=== PATIENT | female | born 1945 | race Caucasian/White ===

== ENCOUNTER 2016-11-11 15:47 | Inpatient (IN) | payer MEDICARE ==
[~2016-11-11] VITALS: Ht 144.8 cm; Wt 58.5 kg
[2016-11-11 16:08] VITALS: BP 131/89; PULSE 114; RESP 20; O2SAT 97
[2016-11-11 17:00] LABS: D-Dimer 1.73 mg/L FEU (<0.50); INR 2.52 ratio
[2016-11-11 17:37] VITALS: BP 115/79; PULSE 105; RESP 24; O2SAT 98
[2016-11-11 17:37] LABS: BASOPHILS % (AUTO) 0.8 % (0-3); EOSINOPHILS % (AUTO) 2.1 % (0-5); MONOCYTES % (AUTO) 8.6 % (4-12); Mean Corpuscular Hemoglobin 29.3 pg (27.0-35.0); NEUTROPHILS % (AUTO) 60.8 % (40-74); Platelet Count 229 bil/L (150-400)
--- NOTE | 2016-11-11 18:06 | ED.REPORT ---
HPI-General Illness Date of Service November 11, 2016 ED Provider: Jaelyn Mcmullen MD The patient is a 71 year old wheelchair bound female anticoagulated on Warfarin with history of multiple PE's and DVT's and spina bifida, who was sent to the emergency department from the [facility] clinic for an INR of 3.0. The patient had a ground level fall on 11/06/16 when she was transferring from the commode. She hit her left upper thigh and twisted her left leg externally. She now has bruising and swelling to her left thigh. She states her left leg is "twice" the size compared to normal. She has limited sensation due to her history of spina bifida but does report a pressure sensation to left upper thigh and hip/groin region. She denies any other injuries or traumas. Since the fall she has also noticed mild shortness of breath. She denies pleuritic pain. The patient is a Hinduism and does not accept blood products. Nursing Notes Stated Complaint: FELL Chief Complaint: Multiple Trauma/Fall Nursing Notes Reviewed: Yes Allergies: Coded Allergies: Sulfa (Sulfonamide Antibiotics) (Verified Allergy, Intermediate, rash, ) Scheduled Calcitonin [place] (Miacalcin) 30 [place]/3.7 Ml Nasalspr 1 SPRAY NA DAILY [place] in 1 Nostril (Alternating Nostrils) Daily Warfarin Sodium (Warfarin Sodium) 3 Mg Tablet 3 MG PO DAILY Miscellaneous Medications Polyethylene Glycol 3350 (Miralax) 17 Gm Powd.pack 17 GM PO General Time Seen by MD: 18:04 Chief Complaint Other (elevated INR) Hx Obtained From: Patient, Spouse Arrived By: Wheelchair Sudden in Onset?: No Onset Occurred: 3 days ago Symptom Duration: Since onset Location: : Hip left: Thigh left Quality: Pressure Severity: Current: Mild Severity: Maximum: Moderate Recent Healthcare: No recent hospitalization, Recent doctor visit Similar Sx Previous: No Past Medical History Past Medical History Notes: Hinduism - doesn't accept blood products Past Medical History Spina bifida Multiple PE's and DVT's on Warfarin Wheechair bound Past Surgical History 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 Physical Exam Vital Signs Vital Signs Date Time Temp Pulse Resp B/P Pulse Ox O2 Delivery O2 Flow Rate FiO2 11/11/16 17:37 105 24 115/79 98 Room Air 11/11/16 16:08 36.7 114 20 131/89 97 Room Air Initial VS: Reviewed Head / Eyes: Atraumatic, Normocephalic, PERRL ENT: Mucous membranes moist, Conjunctiva normal, No scleral icterus Neck: Supple, Non-tender, Full range of motion Respiratory: Breath sounds normal, Clear to auscultation, No respiratory distress Cardiovascular: Regular rate & rhythm, Heart sounds normal, Intact distal pulses Abdomen / GI: Soft, Non-tender, No guarding, No rebound, No distention Neurologic: Alert, Oriented General/Constitutional: Awake, Alert, Cooperative Cardiovascular: Regular rhythm, Heart sounds NL, No gallop, No murmurs, No rubs Heart Rate / Rhythm: Positive: Tachycardia Back: No midline vertebral tend Signs of spina bifida Lower Extremity / Pelvis / MS: Pelvis stable Significantly deformed legs. No sensation about lower extremities. Left thigh significant hematoma from the inguinal crease to the knee appears about 3 days old. Capillary refill intact distally. 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 Acute fracture of the left femur the proximal diaphysis and involving the inferior aspect of the lesser trochanter with displacement of the major distal fragment posteriorly the thickness of the shaft of the femur. No fracture of the pelvic ring. Dictated by: Uri Haji M.D. on 11/11/2016 at 21:06 Approved by: Uri Haji M.D. on 11/11/2016 at 21:13 Lab Results Interpretation Result Diagram: 11/11/16 1631 11/11/16 1631 Test 11/11/16 16:30 11/11/16 16:31 Prothrombin Time 27.5sec (8.1-12.5) Prothromb Time International Ratio 2.52ratio D-Dimer 1.73mg/L FEU (<0.50) White Blood Count 7.7th/mm3 (3.8-10.1) Red Blood Count 3.86mil/mm3 (3.90-5.20) Hemoglobin 11.3g/dL (12.0-15.6) Hematocrit 33.2% (35.0-46.0) Mean Corpuscular Volume 86.0fL (81-100) Mean Corpuscular Hemoglobin 29.3pg (27.0-35.0) Mean Corpuscular Hemoglobin Concent 34.0% (32.0-37.0) Red Cell Distribution Width 12.7% (12.3-15.4) Platelet Count 229bil/L (150-400) Neutrophils (%) (Auto) 60.8% (40-74) Lymphocytes (%) (Auto) 26.4% (14-46) Monocytes (%) (Auto) 8.6% (4-12) Eosinophils (%) (Auto) 2.1% (0-5) Basophils (%) (Auto) 0.8% (0-3) Hold Purple Top Tube Received (Received) Sodium Level 137mEq/L (134-144) Potassium Level 4.1mEq/L (3.5-5.2) Chloride Level 100mEq/L (97-108) Carbon Dioxide Level 22mmol/L (18-29) Blood Urea Nitrogen 18mg/dL (8-27) Creatinine 0.44mg/dL (0.57-1.00) Estimat Glomerular Filtration Rate 203mL/min (>59) Glucose Level 106mg/dL (60-99) Calcium Level 9.7mg/dL (8.5-10.1) Total Bilirubin 1.5mg/dL (0.0-1.2) Aspartate Amino Transf (AST/SGOT) 24U/L (0-50) Alanine Aminotransferase (ALT/SGPT) 12U/L (0-32) Alkaline Phosphatase 72U/L (25-165) Total Protein 7.0g/dL (6.4-8.4) Albumin 3.6g/dL (3.4-5.0) Hold Red Top Tube Received (Received) Hold [place] Top Tube Received (Received) Hold [place] Top Tube Received (Received) X-Ray Chest Interpretation Chest Xray Interpretation: IMPRESSION: Large hernia versus old left hemidiaphragmatic rupture. Acute disease is not seen in the chest. Bones are osteoporotic. Moderate rotoscoliosis. Dictated by: Uri Haji M.D. on 11/11/2016 at 20:40 Approved by: Uri Haji M.D. on 11/11/2016 at 20:42 View: Portable, 1 view Interpretation / Wet Read by: Interpret - Radiologist X-Ray Interpretation Xray Interpretation: IMPRESSION: Proximal femoral fracture thought to be subtrochanteric but involving the lesser trochanter. Dictated by: Uri Haji M.D. on 11/11/2016 at 20:31 Approved by: Uri Haji M.D. on 11/11/2016 at 20:33 X-Ray Ordered: Pelvis, Hip right, Hip left Interpretation / Wet Read by: Interpret - Radiologist Xray Interpretation: IMPRESSION: Proximal left femoral diaphysis fracture on the margin of images. No distal femoral fracture. Bones are osteoporotic. Dictated by: Uri Haji M.D. on 11/11/2016 at 20:29 Approved by: Uri Haji M.D. on 11/11/2016 at 20:31 Study Performed: 2 view X-Ray Ordered: Femur left Interpretation / Wet Read by: Interpret - Radiologist CT Chest Interpretation IMPRESSION: No evidence for pulmonary embolus. Probable large hiatal hernia. I cannot track the distal esophagus to look for the location of the esophageal gastric junction. A probable hiatal hernia rather than ruptured hemidiaphragm appears to be chronic and involves bowel loops which are nonobstructive. Dictated by: Uri Haji M.D. on 11/11/2016 at 20:33 Approved by: Uri Haji M.D. on 11/11/2016 at 20:40 Study type: CT pulm angiogram Interpretation / Wet Read by: Interpret - Radiologist Re-Eval/Medical Decision Med Decision/Clinical Course fall with transfer 5 days ago. Lare proximal thigh hematoma. As she has spina bifida she has no sensation from the tailbone distal. No complaints of pain. She does have prior history of pulmonary emboli and a nonfunctional Khushi filter in place. She is tachycardic today and is very concerned that she has another pulmonary embolism. She continues on Coumadin is currently therapeutic with an INR 2.5 She is a Jehovah witness and not interested in receiving any blood products. This includes FFP to help reverse her Coumadin level in anticipation of surgical intervention for her left hip fracture tomorrow. Given her mobility needed for transfers believe she and her family are interested in operative repair but are willing to consider options if this is not recommended. We will have her remain nothing by mouth over the course of the evening with further discussion to continue in the morning Source of Hx: Old records, Family Time of Eval: 18:26 Re-Evaluation/Progress Note: Discussed plan for x-rays. Time of Eval: 19:45 Re-Evaluation/Progress Note: Discussed fracture seen on x-ray. Remains in no pain. A failed Khushi filter is now seen on exam. Will contact orthopedist for his recommendation. Consultation #1: Referral / Consult Name: Jere Wells MD Consulted With: Orthopedic Call Returned at: 19:57 Dishwasher: Agrees with eval, Agrees with plan Note: After evaluation of x-rays and discussion of patient's case, agrees with plan for admit and will consult. Suspects this will be a nonoperative well healing fracture. Consultation #2: Referral / Consult Name: Elie Mello MD Consulted With: Hospitalist Call Returned at: 20:30 Dishwasher: Will see patient, Agrees with eval, Agrees with plan, Accepts admit Counseled Regarding: Diagnosis, Lab results, Need for admission Discharge & Departure Primary Impression: Fracture of left hip Encounter type: initial encounter Fracture type: closed Qualified Code: S72.002A - Fracture of unspecified part of neck of left femur, initial encounter for closed fracture Additional Impressions: Fall Encounter type: initial encounter Qualified Code: W19.XXXA - Unspecified fall, initial encounter Spina bifida Spinal region: unspecified Presence of hydrocephalus: unspecified hydrocephalus presence Qualified Code: Q05.9 - Spina bifida, unspecified Disposition: ADMITTED TO HOSPITAL Discharge Condition All VS Reviewed: Yes Condition: Stable Referrals: Felisa Waterman PA-C (PCP) Scribe Attestation Portions of this note were transcribed by Mary Alice Hoover and Nick Marcelo. I, Dr. Mcmullen personally performed the history, physical exam and medical decision -making; I reviewed and confirmed the accuracy of the information in the transcribed note. Signed by: Mary Alice Hoover and Marcos Jesus, 11/11/2016 at 1850. copies to: Felisa Waterman PA-C, Shawna L MD November 11, 2016 18:06 Mary Alice Hoover November 11, 2016 18:11 NICK MARCELO November 11, 2016 18:45
--- NOTE | 2016-11-11 20:32 | DRSVH ---
PROCEDURE: X-RAY LEFT FEMUR, TWO VIEWS ([id number]) INDICATIONS: trauma TECHNIQUE: 2 views of the distal femur are presented. COMPARISON: None. FINDINGS: Bones: Bones are osteoporotic. There is a fracture of the proximal femoral diaphysis without good vis ualization on these images. No fracture of the distal femur is seen. No suspicious bony lesions. Soft tissues: No suspicious soft tissue calcifications or masses. IMPRESSION: Proximal left femoral diaphysis fracture on the margin of images. No distal femoral fract ure. Bones are osteoporotic. Dictated by: Uri Haji M.D. on 11/11/2016 at 20:29 Approved by: Uri Haji M.D. on 11/11/2016 at 20:31
--- NOTE | 2016-11-11 20:34 | DRSVH ---
PROCEDURE: X-RAY PELVIS WITH BILATERAL HIPS, 3 VIEWS INDICATIONS: trauma TECHNIQUE: AP pelvis with lateral view(s) of the both hip(s). COMPARISON: None. FINDINGS: Bones: There is an acute fracture of the proximal left femur. This is a comminuted fracture involvin g the lesser trochanter, right butterfly fragment just inferior to this in the proximal femoral diaph ysis. The femoral neck and head are intact. Pelvic ring appears intact. There is developmental deform ity of both femoral heads and acetabula. The pelvic ring is deformed but no fracture is seen of it. N o suspicious bony lesions. Soft tissues: The visualized bowel gas pattern is normal. No suspicious soft tissue calcifications. IMPRESSION: Proximal femoral fracture thought to be subtrochanteric but involving the lesser trochant er. Dictated by: Uri Haji M.D. on 11/11/2016 at 20:31 Approved by: Uri Haji M.D. on 11/11/2016 at 20:33
--- NOTE | 2016-11-11 20:41 | DRSVH ---
PROCEDURE: CT ANGIO CHEST PULMONARY EMBOLISM ([id number]) INDICATIONS: rule out pulmonary embolus TECHNIQUE: After the administration of intravenous contrast, 2 mm thick sections acquired from the pulmonary api montez to the posterior costophrenic angles. 3-dimensional maximum intensity projection (MIP) coronal a nd sagittal reformats were then acquired through the thorax. For radiation dose reduction, the follo wing was used: automated exposure control, adjustment of mA and/or kV according to patient size. COMPARISON: None. FINDINGS: Image quality: Excellent. Pulmonary arteries: Pulmonary arteries are normal in size, and demonstrate no intraluminal filling d efects to suggest central pulmonary embolism. Lungs and pleura: Lungs are clear. No pleural effusions or pneumothorax. Central and peripheral ai rways are patent. Mediastinum: Heart size is normal, without pericardial effusion. No mediastinal or hilar adenopathy . Thoracic aorta is normal in caliber and enhancement. The stomach and a good portion of bowel loops are within the chest in the left hemithorax. Whether this is a large hiatal hernia or chronic old te ar of the hemidiaphragm I cannot tell. There is subsegmental atelectasis at the left base. Bones and chest wall: There is a moderate rotoscoliosis convex to the left in the lower and to the r ight in the upper thoracic spine. No suspicious bony lesions. Ribs and thoracic spine appear intact throughout. . No axillary or supraclavicular adenopathy. Abdomen: Visualized upper abdominal solid organs appear normal in the early arterial phase of enhanc ement. IMPRESSION: No evidence for pulmonary embolus. Probable large hiatal hernia. I cannot track the distal esophagus to look for the location of the eso phageal gastric junction. A probable hiatal hernia rather than ruptured hemidiaphragm appears to be c hronic and involves bowel loops which are nonobstructive. Dictated by: Uri Haji M.D. on 11/11/2016 at 20:33 Approved by: Uri Haji M.D. on 11/11/2016 at 20:40
--- NOTE | 2016-11-11 20:43 | DRSVH ---
PROCEDURE: X-RAY CHEST ONE VIEW ([id number]) INDICATIONS: PER ER DOCTOR TECHNIQUE: One view of the chest was acquired. COMPARISON: None. FINDINGS: Surgical changes and devices: secured entrance monitor leads are seen over the chest. Lungs and pleura: No pleural effusions or pneumothorax. Lungs are clear. There is a large hernia o r old disruption of the left hemidiaphragm in the left lower lung field. Position of the GE junction cannot be determined. Mediastinum: Mediastinal contours appear normal. Heart size is normal. Bones and chest wall: No suspicious bony lesions. Overlying soft tissues appear unremarkable. IMPRESSION: Large hernia versus old left hemidiaphragmatic rupture. Acute disease is not seen in the chest. Bones are osteoporotic. Moderate rotoscoliosis. Dictated by: Uri Haji M.D. on 11/11/2016 at 20:40 Approved by: Uri Haji M.D. on 11/11/2016 at 20:42
--- NOTE | 2016-11-11 21:14 | DRSVH ---
PROCEDURE: CT HIP LEFT W/O CONTRAST ([id number]) INDICATIONS: FALL LEFT HIP PAIN TECHNIQUE: Noncontrast 3 mm axial sections acquired through the bony pelvis. Additional 3 mm axial sections acq uired through the symptomatic hip joint, with coronal and sagittal reformats. COMPARISON: None. FINDINGS: Image quality: Excellent. Bones: In this patient with deformed pelvis and developmentally deformed femoral head and acetabulum there is no acute fracture of the proximal left femur. The fracture involves the inferior aspect of t he lesser trochanter and the proximal diaphysis of the femur. The distal diaphysis is displaced poste riorly the thickness of the diaphysis. No fracture of the more proximal femur is seen. Bones are oste openic in appearance and there is a moderate amount of fluid around the deformed left hip joint. 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 Acute fracture of the left femur the proximal diaphysis and involving the inferior aspect of the less er trochanter with displacement of the major distal fragment posteriorly the thickness of the shaft o f the femur. No fracture of the pelvic ring. Dictated by: Uri Haji M.D. on 11/11/2016 at 21:06 Approved by: Uri Haji M.D. on 11/11/2016 at 21:13
[2016-11-11] MEDS ORDERED: Polyethylene Glycol (PEG) 17 Gm Powder PO PRN (22:10)
[2016-11-11] MEDS ORDERED: Ondansetron 2 mg/mL 2 mL Inj IVPUSH PRN (22:10)
[2016-11-11] MEDS ORDERED: Phytonadione (Adult) 10 mg/1 mL Inj PO ONE ×2 (22:10→22:35)
[2016-11-11] MEDS ORDERED: Alum-Mag Hydrox-Simeth 30 mL Suspension PO PRN (22:10)
[2016-11-11 22:27] VITALS: BP 126/86; PULSE 117; RESP 18; O2SAT 100
--- NOTE | 2016-11-11 22:40 | PCM.HPMED ---
Subjective Date of Service November 11, 2016 Primary Provider: Admitting Physician: Elie Mello MD Primary Care Physician: Felisa Waterman PA-C Attending Physician: Elie Mello MD Admit Status: From the Emergency Department Chief Complaint: Left hip fracture History of Present Illness: Mrs. Magana is a 71-year-old female with past medical history of spina bifida with no sensation to her bilateral lower extremitys leaving her mostly wheelchair bound as well as a history of multiple PEs and DVTs on chronic anticoagulation who was sent to the ED from the [facility] clinic today for a supratherapeutic INR. The patient reportedly had a ground-level fall on 2016 she was transferring herself from the commode which she routinely does. On falling she states she hit her left upper thigh and twisted her leg externally, denies hitting her head or losing consciousness, or any feelings of pain after fall (though she does not have sensation in her lower extremities). After fall she noticed a large hematoma develop on her left thigh and left hip as well as increase in her left leg circumference stating it is twice the size it normally is. Again she does not report any pain to this area stating it feels more like a pressure sensation to her upper thigh and hip groin area. She also states that since the fall she has been experiencing some mild shortness of breath. She denies chest pain, headache, abdominal pain or changes in GI or habits. She does state that she has has been getting dizzy over the last few days to weeks especially while transferring from commode to wheelchair, also she has been feverish at home but was not temperature. Of note patient is a Jainism and does not wish to receive blood products/platelet transfusion Review of Systems: A comprehensive review of systems was conducted with the patient and found to be negative except as above in the history of present illness. 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 Family History Father thyroid disorder, emphysema, hypertension, of pneumonia age 87 Mother hypertension, thyroid disorder from cardiovascular disease age 80 Social History Hx Alcohol Use: Yes (2 glasses of wine occasionally) Hx Substance Use: No Hx Tobacco Use: No Smoking Status: Unknown if Ever Smoker Exam Vital Signs Vital Sign - Last Date Time Temp Pulse Resp B/P Pulse Ox O2 Delivery O2 Flow Rate FiO2 11/11/16 17:37 105 24 115/79 98 Room Air 11/11/16 16:08 36.7 Exam General: Awake and alert sitting up in hospital bed no acute distress, appropriately interactive HEENT: Normocephalic, atraumatic. External ears without defect. Pupils equal, round, and reactive to light and accommodation. Neck: Supple with full range of motion. No jugular venous distension. Cardiovascular: Tachycardic rate with regular rhythm, no murmurs, rubs, or gallops appreciated Pulmonary: Clear to auscultation bilaterally with no crackles, wheezes, or rhonchi. Normal respiratory effort with no use of accessory muscles. Good air movement Abdomen: Bowel tones present. Soft, nontender. Back: Spina bifida. Spinal midline. Lower back deformities, patient attributes this to collections of spinal fluid Extremities: Significantly distal lower extremities, no sensation of extremities distal pelvis. Unable to move lower extremities bilaterally Left leg greater circumference than right secondary to edema. Significant hematoma on left thigh/left hip area. Cool to palpation, Cap refill less than 2 seconds. Good Pedal pulses bilaterally. No pain to palpation Neurological: Cranial nerves grossly intact. Psychiatric: Normal mood and affect. Alert and oriented to person, place, and time. Lab and Diagnostics Result Diagram: 11/11/16 1631 11/11/16 1631 X-Rays, CTs and MRIs . X-RAY PELVIS WITH BILATERAL HIPS, 3 VIEWS IMPRESSION: Proximal femoral fracture thought to be subtrochanteric but involving the lesser trochanter. Dictated by: Uri Haji M.D. on 11/11/2016 at 20:31 X-RAY LEFT FEMUR, TWO VIEWS IMPRESSION: Proximal left femoral diaphysis fracture on the margin of images. No distal femoral fracture. Bones are osteoporotic. Dictated by: Uri Haji M.D. 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 Acute disease is not seen in the chest. Bones are osteoporotic. Moderate rotoscoliosis. Dictated by: Uri Haji M.D. on 11/11/2016 at 20:40 CT ANGIO CHEST PULMONARY EMBOLISM IMPRESSION: No evidence for pulmonary embolus. Probable large hiatal hernia. I cannot track the distal esophagus to look for the location of the esophageal gastric junction. A probable hiatal hernia rather than ruptured hemidiaphragm appears to be chronic and involves bowel loops which are nonobstructive. Dictated by: Uri Haji M.D. 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 Acute fracture of the left femur the proximal diaphysis and involving the inferior aspect of the lesser trochanter with displacement of the major distal fragment posteriorly the thickness of the shaft of the femur. No fracture of the pelvic ring. Dictated by: Uri Haji M.D. on 11/11/2016 at 21:06 Assessment & Plan Mrs. Magana is a 71-year-old female with past medical history of spina bifida , multiple PEs and DVTs admitted for a left hip fracture Left hip fracture. Present on admission. Ongoing - Imaging confirmed - Orthopedics consult, awaiting recommendations - will see patient in the a.m. - Jainism, no blood products excepted - Nothing by mouth - Warfarin held - 10 Mg of vitamin K given - INR 2.52 - Repeat INR pending D-dimer, present on admission. Ongoing - 1.73 in ED - CT angiogram negative - Supratherapeutic INR - Lower extremity ultrasound pending Normocytic anemia. Present on admission. Ongoing - H&H 11.3/33.2 - Most likely secondary to recent ground-level fall - Patient Jainism. No blood products - Continue to monitor Chronic constipation. Present on admission. Ongoing - MiraLAX Patient Status: Patient was admitted under inpatient status with expected length of stay greater than two midnights due to severity of presenting symptoms , risk of adverse event, and complexity of treatment plan. Pain Evaluation: Adequate Pain Control GI Prophylaxis: H2 carrillo (yuko) VTE Prophylaxis: SCDs Resuscitation Status: CPR: Attempt Resuscitation Attending Statement The patient was seen and examined together with Dr. Vargas on 11/11 and I agree with the history, exam and plan as outlined in the note above. ALEX VARGAS DO November 11, 2016 22:40 Elie Mello MD Nov 12, 2016 01:56
[2016-11-11 22:42] VITALS: BP 110/72; PULSE 74; RESP 14; O2SAT 97
--- NOTE | 2016-11-11 22:45 | NUR ---
Admit Patient arrived to floor at 2227 from ED. Report given by Gilda Mcdonald. Patient A&OX3. Room air. Left AC Peripheral IV Asymptomatic and patent. Vitals stable. Torres catheter Patent and draining. Patient's family by bedside.
[2016-11-11] MEDS ORDERED: POLY17PO6 PO (23:21)
[2016-11-11] MEDS ORDERED: CLC200SP2 (23:21)
[2016-11-11] MEDS ORDERED: WARF3TAB7 PO (23:21)
[2016-11-12] VITALS (12 sets, daily range): BP systolic 93–126; BP diastolic 58–95; PULSE 93–130; RESP 16–24; O2SAT 98–100
[2016-11-12] MEDS ORDERED: Phytonadione (Adult) 10 mg/1 mL Inj IV ONE (00:30)
[2016-11-12] MEDS ORDERED: CHOL10008 PO (00:36)
[2016-11-12] MEDS: 0.9% Sodium Chloride 1,000 ML IV SCH ×3 (05:06→14:25)
[2016-11-12 05:42] LABS: BASOPHILS % (AUTO) 0.8 % (0-3); EOSINOPHILS % (AUTO) 2.3 % (0-5); MONOCYTES % (AUTO) 8.4 % (4-12); Mean Corpuscular Hemoglobin 30.1 pg (27.0-35.0); Mean Corpuscular Volume 86.5 fL (81-100); NEUTROPHILS % (AUTO) 58.8 % (40-74); Platelet Count 226 bil/L (150-400)
[2016-11-12 06:02] LABS: Magnesium 1.9 mg/dL (1.6-2.6)
[2016-11-12 06:29] LABS: INR 1.37 ratio
[2016-11-12] MEDS: Polyethylene Glycol (PEG) 17 Gm Powder PO SCH (08:01)
--- NOTE | 2016-11-12 11:04 | DRSVH ---
PROCEDURE: US VEINOUS LEG DUPLEX UNILATERAL, LEFT INDICATIONS: leg swelling DVT hx TECHNIQUE: Real-time imaging, as well as color and pulse Doppler interrogation, were performed of the lower extr emity deep veins from the inguinal ligament to the popliteal fossa. COMPARISON: [facility], US, VEINS EXTREMITY DUPLEX,[facility], 10/05/2014, 12:18. FINDINGS: No deep venous thrombosis seen within the left common femoral and proximal/mid superficial femoral vein. The distal superficial femoral and popliteal vein is not well seen in this patient wi th prior history of DVT likely related to chronic DVT. IMPRESSION: 1. Suspect chronic DVT involving the distal left superficial femoral and popliteal veins otherwise th e common femoral and proximal/mid superficial femoral veins are patent. Dictated by: Jeffery FLOWER Interpreted: Simone Ash MD on 11/12/2016 at 11:02 Transcribed by: HUMA on 11/12/2016 at 11:04 Approved by: Simone Ash M.D. on 11/12/2016 at 13:19
--- NOTE | 2016-11-12 11:16 | PCM.CONORT ---
Subjective Date of Surgery: Nov 12, 2016 Surgeon Admitting Provider:Elie Mello MD Attending Provider:Elie Mello MD Primary Care Physician:Felisa Waterman PA-C Other Provider: Reason for Consultation: Left femur fracture Allergy Allergies: Coded Allergies: Sulfa (Sulfonamide Antibiotics) (Verified Allergy, Intermediate, rash, ) Medications Calcitonin [place] (Miacalcin) 30 [place]/3.7 Ml Nasalspr 1 SPRAY NA DAILY ( Reported) [place] in 1 Nostril (Alternating Nostrils) Daily Last Taken: Unknown Dose on 11/11/16 Cholecalciferol (Vitamin D3) (Vitamin D3) 1,000 Unit Tab.chew 1,000 UNIT PO BID (Reported) Last Taken: 1,000 UNITS on 11/11/16 0900 Polyethylene Glycol 3350 (Miralax) 17 Gm Powd.pack 17 GM PO DAILY PRN PRN For Constipation (Reported) Last Taken: Unknown Dose on 11/11/16 Warfarin Sodium (Warfarin Sodium) 3 Mg Tablet 3 MG PO DAILY (Reported) Last Taken: Unknown Dose on 11/11/16 History History of ENT Problems?: Yes HEENT History: Positive for:: Cataracts Denies:: Dysphagia Glaucoma Sinus Problem Denture Type: Partial- Upper Teeth Condition: Within Normal Limits Hx of Heart Problems?: No Cardiovascular History: Positive for:: Edema Denies:: Cardiac Surgery Chest Pain Congestive Heart Failure Heart Murmur Hypertension Irregular Heartbeat Pacemaker Thrombophlebitis Hx of Respiratory Problem?: No Respiratory History: Positive for:: Dyspnea Denies:: Asthma COPD Chest Surgery Emphysema Hemoptysis Pneumonia Tuberculosis Hx Neurologic Problems?: No Neurological History: Denies:: Alzheimer's Disease CVA Dementia Dizziness Headaches Parkinson's Disease Seizures Hx of GI Problems?: No Hx of Problems?: Yes Genitourinary History: Positive for:: Urinary Tract Infection Denies:: HX of Hemodialysis Kidney Stones HX of Peritoneal Dialysis: No Female Hx: Denies:: Currently Endometriosis Pelvic Inflammatory Problems with Breasts? Hx Musculoskeletal Problems?: No Musculoskeletal History: Positive for:: Joint Replacement (hip) Musculoskeletal Trauma (fractured hip) Denies:: Back Injury Other History/Comment Janet Magana is a 71-year-old female patient who presents to the ED and a consultation for orthopedic evaluation of their left hip was requested for her ongoing symptoms. The patient states that their pain is a "spasmy" and pinching in nature and mild/moderate in severity localized in the hip and groin without radiation. This has been progressing over the past few hours after she fell while transferring.. Moreover, the pain is exacerbated by activities, especially with uncomfortable positions. 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 She was told that she cannot undergo surgery to have her filter replaced. She reports that she is unable to lay flat given the fact that she has a large fluid collection in her posterior spine which may increase her intracerebral pressures. She reports a history of ischial decubitus wound problems with flap placed in the past. She currently is insensate below her sacrum; however feels spasms given her fracture and reports that she does do independent transfers and does need to stand. She lives with her but reports that he has his own issues and he is unable to help her. She is completely insensate to bilateral lower extremity. There is no known history of hip problems as a child /adolescent such as SCFE, Perthes, dysplasia, OI, or ligamentous laxity. The patient denies any fever, chills, nausea, vomiting, chest pain, shortness of breath, or calf tenderness. Work/hobbies/sports include: Presents with and daughter Hx of Psycho/Social Problems?: No Psycho Social History: Denies:: Anxiety Bipolar Disorder Hx Depression Suicide Attempt Hx Surgeries?: Yes (Ventricular shunt. hip surgery.) Hx Any Other Health Problems?: Yes Other History: Positive for:: Hospitalization Denies:: Cancer Thyroid Disease History Blood Transfusions: Denies:: Accept Blood Products? Blood Transfuse Reaction Blood Transfusions Hx Diabetes: No Hx Alcohol Use: Yes (2 glasses of wine occasionally)Hx Substance Use: No Smoking Status: Unknown if Ever Smoker Have You Smoked inLast 12 mo: No Objective Exam Vital Signs & I/O Vital Sign- Last 8 Hours Date Time Temp Pulse Resp B/P Pulse Ox O2 Delivery O2 Flow Rate FiO2 11/12/16 08:40 36.1 105 16 115/71 98 Room Air 11/12/16 04:50 36.7 93 18 118/58 98 Room Air Intake and Output- Last 8 Hour 11/12/16 Cumulative From/Thru 07:00 11/11/16 16:08 - 11/12/16 06:55 Intake Total 100 ml 100 ml Output Total 700 ml 700 ml Balance -600 ml -600 ml Intake Oral 0 ml 0 ml IV Total 100 ml 100 ml Output Urine Total 700 ml 700 ml # Bowel Movements 0 0 Lab & Micro Results Laboratory Tests Test 11/11/16 16:30 11/11/16 16:31 11/12/16 05:10 Prothrombin Time 27.5sec (8.1-12.5) 14.7sec (8.1-12.5) Prothromb Time International Ratio 2.52ratio 1.37ratio D-Dimer 1.73mg/L FEU (<0.50) White Blood Count 7.7th/mm3 (3.8-10.1) 6.2th/mm3 (3.8-10.1) Red Blood Count 3.86mil/mm3 (3.90-5.20) 3.56mil/mm3 (3.90-5.20) Hemoglobin 11.3g/dL (12.0-15.6) 10.7g/dL (12.0-15.6) Hematocrit 33.2% (35.0-46.0) 30.8% (35.0-46.0) Mean Corpuscular Volume 86.0fL (81-100) 86.5fL (81-100) Mean Corpuscular Hemoglobin 29.3pg (27.0-35.0) 30.1pg (27.0-35.0) Mean Corpuscular Hemoglobin Concent 34.0% (32.0-37.0) 34.7% (32.0-37.0) Red Cell Distribution Width 12.7% (12.3-15.4) 12.9% (12.3-15.4) Platelet Count 229bil/L (150-400) 226bil/L (150-400) Neutrophils (%) (Auto) 60.8% (40-74) 58.8% (40-74) Lymphocytes (%) (Auto) 26.4% (14-46) 28.7% (14-46) Monocytes (%) (Auto) 8.6% (4-12) 8.4% (4-12) Eosinophils (%) (Auto) 2.1% (0-5) 2.3% (0-5) Basophils (%) (Auto) 0.8% (0-3) 0.8% (0-3) Hold Purple Top Tube Received (Received) Sodium Level 137mEq/L (134-144) 142mEq/L (134-144) Potassium Level 4.1mEq/L (3.5-5.2) 3.8mEq/L (3.5-5.2) Chloride Level 100mEq/L (97-108) 103mEq/L (97-108) Carbon Dioxide Level 22mmol/L (18-29) 21mmol/L (18-29) Blood Urea Nitrogen 18mg/dL (8-27) 18mg/dL (8-27) Creatinine 0.44mg/dL (0.57-1.00) 0.48mg/dL (0.57-1.00) Estimat Glomerular Filtration Rate 203mL/min (>59) 184mL/min (>59) Glucose Level 106mg/dL (60-99) 98mg/dL (60-99) Calcium Level 9.7mg/dL (8.5-10.1) 9.0mg/dL (8.5-10.1) Total Bilirubin 1.5mg/dL (0.0-1.2) 1.7mg/dL (0.0-1.2) Aspartate Amino Transf (AST/SGOT) 24U/L (0-50) 19U/L (0-50) Alanine Aminotransferase (ALT/SGPT) 12U/L (0-32) 11U/L (0-32) Alkaline Phosphatase 72U/L (25-165) 64U/L (25-165) Total Protein 7.0g/dL (6.4-8.4) 5.6g/dL (6.4-8.4) Albumin 3.6g/dL (3.4-5.0) 3.2g/dL (3.4-5.0) Hold Red Top Tube Received (Received) Hold [place] Top Tube Received (Received) Hold [place] Top Tube Received (Received) Magnesium Level 1.9mg/dL (1.6-2.6) Result Diagram: 6/06/30 0410 11/12/1610 Review of Systems: Constitutional: Negative, except as otherwise mentioned in the history above. Ophthalmologic: Negative, except as otherwise mentioned in the history above. Cardiovascular: Negative, except as otherwise mentioned in the history above. Respiratory: Negative, except as otherwise mentioned in the history above. Gastrointestinal: Negative, except as otherwise mentioned in the history above. Genitourinary: Negative, except as otherwise mentioned in the history above. Musculoskeletal: Negative, except as otherwise mentioned in the history above. Neurological: Negative, except as otherwise mentioned in the history above. Psychiatric: Negative, except as otherwise mentioned in the history above. Hematologic/Lymphatic: Negative, except as otherwise mentioned in the history above. Allergic/Immunologic: Negative, except as otherwise mentioned in the history above. H&P Surgical Exam Exam Musculoskeletal: CONST: WD,WN, NAD, A+OX3 OCULAR: EOMI, no conjunctivitis/icterus ENT: no deformities, scars or lesions CARDIAC: Pulse is regular. No cyanosis,clubbing,edema RESP: regular,unlabored MSK: Insensate to light touch SPN/DPN/TN distributions. Unable to perform DF/PF /Inv/Ev, 2+ DP Left hip HIP - scars.+ Ecchymosis along lateral thigh, + swelling, - erythema - atrophy or asymmetry. TTP none, ROM logroll-not painful Strength Unable to perform range of motion test - calf tenderness Additional Information Two-view x-ray length demonstrates severely dysplastic left femoral head with subtrochanteric proximal femur spiral fracture with displacement. H&P Preop Plan Impression Left femoral shaft fracture with multiple medical comorbidities Problems: Risks & Benefits * We have reviewed the risks and benefits as well as the alternatives to surgery. All questions were answered to the patient's satisfaction and a counseling note to that effect. The patient has provided informed consent. * I have counseled the patient regarding the deleterious effects that smoking during the perioperative period can have upon wound healing, infection rates, and the overall rate of complications. Plan Nonweightbearing left lower extremity We discussed extensively surgical versus nonsurgical treatment options We discussed poor surgical candidate given history of pulmonary embolisms, need for anticoagulation, failed filter, failed ENCAPSULATOR shunt, wound complications, wound healing problems, lack of support at home. We discussed nonweightbearing and assistance with transfers to allow nonoperative fracture healing You have elected for left femur closed reduction intramedullary nail fixation to assist with transfers and standing for daily function. We discussed risks with stopping anticoagulation and necessary for bridging with Lovenox and/or heparin drip. Plan for left femur CR IMN today Appreciate medical optimization NPO after midnight CT scan recommended of the left hip Continue medical management per primary Please call with questions I reviewed my findings with the patient. The patient remains symptomatic following the initial injury. In light of the ongoing symptoms, our plan is to proceed with surgical intervention. I have explained to the patient the nature of the surgery as well as the perioperative recovery including the risks, benefits and alternatives. A clear explanation was given to the patient regarding the condition present, and the available conservative and surgical options. It was emphasized that the risks and benefits of surgery include but are not limited to infection, wound healing problems, damage to adjacent structures such as nerves, blood vessels and tendons, terminal manager disability and pain, arthritis, hypersensitivity, deep vein thrombosis, pulmonary embolism, broken hardware, failure of surgery, need for further procedures at time of surgery or later, loss of limb, heart attack, stroke, and . The patient was given an explanation and the patient voiced understanding of what to expect after the procedure or surgery, the limitations in activities of daily living, the likely duration for post operative recovery and the instructions that are to be followed. At the end the patient was invited to seek clarification or ask further questions but there were none. I have advised the patient first that there are no guarantees as to outcome and that their ultimate improvement is largely based on the extent of the pre-existing underlying pathology. The patient was instructed to be n.p.o. past midnight The patients questions were answered and they stated understanding of the nature of the surgical procedure and gave written and verbal consent to proceed. The patient voiced understanding of the entire consultation. Jere Wells MD Nov 12, 2016 11:16
--- NOTE | 2016-11-12 12:24 | PCM.HPANE ---
Patient Data Surgeon Admitting Provider:Elie Mello MD Attending Provider:Elie Mello MD Primary Care Physician:Felisa Waterman PA-C Other Provider: Reason for Visit Left Hip Fx, Thigh Hematoma, Anticoagulated Ht/WT & BMI Height (Feet): 4 Height (Inches): 9.00 Weight (Kilograms): 58.500 Body Mass Index 27.82 Allergies Coded Allergies: Sulfa (Sulfonamide Antibiotics) (Verified Allergy, Intermediate, rash, ) Past Anesthesia History Anesthesia History: Denies:: Anesthesia Reactions Diabetes History Hx Diabetes?: No MRSA MRSA: No Medications Hypertension Medication: No Home Meds Incl Beta [place]: No Reported Medications Cholecalciferol (Vitamin D3) (Vitamin D3)1,000 Unit Tab.chew1,000 Unit PO BID 11/12/16 Calcitonin [place] (Miacalcin)30 [place]/3.7 Ml Nasalspr1 [place] NA DAILY #1 BOTTLE [place] in 1 Nostril (Alternating Nostrils) Daily 11/11/16 Polyethylene Glycol 3350 (Miralax)17 Gm Powd.pack17 Gm PO DAILY PRN For Constipation 11/11/16 Warfarin Sodium 3 Mg Tablet3 Mg PO DAILY 30 Days Ref 0 11/11/16 History History of ENT Problems?: Yes HEENT History: Positive for:: Cataracts Denies:: Dysphagia Glaucoma Sinus Problem Denture Type: Partial- Upper Teeth Condition: Within Normal Limits Hx of Heart Problems?: No Cardiovascular History: Positive for:: Edema Denies:: Cardiac Surgery Chest Pain Congestive Heart Failure Heart Murmur Hypertension Irregular Heartbeat Pacemaker Thrombophlebitis Other History/Comments h/o chronic DVT in left leg, on coumadin, IVC filter in place but not functioning(?) according to family Hx of Respiratory Problem?: No Respiratory History: Positive for:: Dyspnea Denies:: Asthma COPD Chest Surgery Emphysema Hemoptysis Pneumonia Tuberculosis Hx Neurologic Problems?: Yes Neurological History: Denies:: Alzheimer's Disease CVA Dementia Dizziness Headaches Parkinson's Disease Seizures Other History/Comments insensate to bilat lower extremities secondary to spina bifida large sub-q collection of CSF(?) left buttock region--patient states that pressure on this sack can cause increased pressure in brain and she passes out Hx of GI Problems?: No Hx of Problems?: Yes Genitourinary History: Positive for:: Urinary Tract Infection Denies:: HX of Hemodialysis Kidney Stones HX of Peritoneal Dialysis: No Female Hx: Denies:: Currently Endometriosis Pelvic Inflammatory Problems with Breasts? Hx Musculoskeletal Problems?: Yes Musculoskeletal History: Positive for:: Joint Replacement (hip) Musculoskeletal Trauma (fractured hip) Denies:: Back Injury Other History/Comment spina bifida Hx of Psycho/Social Problems?: No Psycho Social History: Denies:: Anxiety Bipolar Disorder Hx Depression Suicide Attempt Hx Surgeries?: Yes (Ventricular shunt. hip surgery.) Hx Any Other Health Problems?: Yes Other History: Positive for:: Hospitalization Denies:: Cancer Thyroid Disease History Blood Transfusions: Denies:: Accept Blood Products? Blood Transfuse Reaction Blood Transfusions Hx Diabetes: No Hx Alcohol Use: Yes (2 glasses of wine occasionally)Hx Substance Use: No Smoking Status: Unknown if Ever Smoker Have You Smoked inLast 12 mo: No Stop/Bang Treated for Sleep Apnea?: No Do You Have a CPAP Machine?: No S-Snoring: Do You Snore Loudly: Yes T-Tired: feel tired, fatigued: No O-Obsered: Observed not breath: No P-Blood Pressure: treated: No B- Body Mass Index > 35 kg/m2: No A- Age over 50: Yes N- Neck Large Circumference: No G- Gender Male: No BRYNN Total Score: 1 Risk Assessment Category Category 1A: Patient has history of documented sleep apnea, and HAS NOT received any narcotic, sedative or anesthesia administration during this stay. Category 1B: Patient has history of documented sleep apnea, and HAS received any narcotic , sedative or anesthesia administration during this stay Category 2: Patient has SUSPECTED Obstructive Sleep Apnea, and HAS received any narcotic , sedative or anesthesia administration during this stay. Category 3: Patient has SUSPECTED Obstructive Sleep Apnea and HAS NOT received narcotic, sedative or anesthesia administration during this stay. Category 4: Outpatient in Procedural Areas with known sleep apnea or who screen positive for High Risk via the STOP/BANG questionnaire. Exam Exam Vital Signs Vital Signs Date Time Temp Pulse Resp B/P Pulse Ox O2 Delivery O2 Flow Rate FiO2 11/12/16 08:40 36.1 105 16 115/71 98 Room Air 11/12/16 04:50 36.7 93 18 118/58 98 Room Air General Appearance: Alert, Oriented X3, Cooperative, No Acute Distress HEENT/AIRWAY: MP 2, Neck Movement (NML), Mouth Opening (2-3FB), Other (partial upper) Lungs: Normal Air Movement Heart: Exam Unremarkable Additional Information roughly 15cm x10cm mass/fluid collection on upper left buttock Meds/Labs/Diagnostics Admission Meds Current Medications Phytonadione 10 mg 10 mg ONCE ONCE IV Last administered on 11/12/16 01:18; Start 11/12/16 at 00:30; Stop 11/12/16 at 00:31; Status DC Sodium Chloride (Normal Saline) 1,000 ml @ 100 mls/hr Q10H IV Last administered on 11/12/16 05:06; Start 11/12/16 at 04:25 Labs Test 11/11/16 16:30 11/11/16 16:31 11/12/16 05:10 D-Dimer 1.73mg/L FEU (<0.50) Hold Purple Top Tube Received (Received) Hold Red Top Tube Received (Received) Hold [place] Top Tube Received (Received) Hold [place] Top Tube Received (Received) White Blood Count 6.2th/mm3 (3.8-10.1) Red Blood Count 3.56mil/mm3 (3.90-5.20) Hemoglobin 10.7g/dL (12.0-15.6) Hematocrit 30.8% (35.0-46.0) Mean Corpuscular Volume 86.5fL (81-100) Mean Corpuscular Hemoglobin 30.1pg (27.0-35.0) Mean Corpuscular Hemoglobin Concent 34.7% (32.0-37.0) Red Cell Distribution Width 12.9% (12.3-15.4) Platelet Count 226bil/L (150-400) Neutrophils (%) (Auto) 58.8% (40-74) Lymphocytes (%) (Auto) 28.7% (14-46) Monocytes (%) (Auto) 8.4% (4-12) Eosinophils (%) (Auto) 2.3% (0-5) Basophils (%) (Auto) 0.8% (0-3) Prothrombin Time 14.7sec (8.1-12.5) Prothromb Time International Ratio 1.37ratio Sodium Level 142mEq/L (134-144) Potassium Level 3.8mEq/L (3.5-5.2) Chloride Level 103mEq/L (97-108) Carbon Dioxide Level 21mmol/L (18-29) Blood Urea Nitrogen 18mg/dL (8-27) Creatinine 0.48mg/dL (0.57-1.00) Estimat Glomerular Filtration Rate 184mL/min (>59) Glucose Level 98mg/dL (60-99) Calcium Level 9.0mg/dL (8.5-10.1) Magnesium Level 1.9mg/dL (1.6-2.6) Total Bilirubin 1.7mg/dL (0.0-1.2) Aspartate Amino Transf (AST/SGOT) 19U/L (0-50) Alanine Aminotransferase (ALT/SGPT) 11U/L (0-32) Alkaline Phosphatase 64U/L (25-165) Total Protein 5.6g/dL (6.4-8.4) Albumin 3.2g/dL (3.4-5.0) Plan Impression Patient chart reviewed, patient interviewed and anesthestic plan with risks, benefits, and alternatives discussed, and informed consent obtained. ASA Physical Status: ASA4 Life Threatening (spina bifida with paralysis, CSF fluid collection in buttock, anxiety) Anesthetic Plan: MAC Bene/Risks/Altern/Consents: Yes HP Complete Prior to Induction: Yes Other Extensive discussion with patient and her family about the concerns and challenges of positioning. Patient is very anxious and insists she cannot be aware nor remember any of the surgery. I explained that we would need her assistance to safely get positioned on the OR table so as not to increase pressure on the CSF fluid collection. Once she is positioned adequately for surgery and her comfort then she may have further sedation. Anxiolysis to begin in pre-op. Will attempt to avoid GA to facilitate fast evaluation of mental status post-procedure. Emmanuel Rivera MD Nov 12, 2016 12:24
--- NOTE | 2016-11-12 12:49 | NUR ---
TO OR Consent form has been signed. Report given to AMANDA Giang. IV saline locked. Transported to the OR via a hospital bed. Family is aware.
[2016-11-12] MEDS ORDERED: Propofol 10,000 mCg/mL 20 mL Inj ONE (12:50)
[2016-11-12] MEDS ORDERED: fentaNYL-PF 50 mCg/mL 2 mL Inj ONE ×2 (12:50→17:11)
[2016-11-12] MEDS ORDERED: Phenylephrine/NS-PF 100 mCg/mL 5 mL Syringe IVPUSH ONE (12:50)
--- NOTE | 2016-11-12 13:58 | NUR ---
pt is in OR Addendum: 11/12/16 at 1359 by DAVY SHRESTHA CNA Amended: Links added.
[2016-11-12] MEDS ORDERED: Lactated Ringer's 500 ML IV PRN (14:46)
[2016-11-12] MEDS ORDERED: Lactated Ringer's 1,000 ML IV SCH (14:46)
[2016-11-12] MEDS ORDERED: Labetalol 5 mg/mL 4 mL Inj IV PRN (14:50)
[2016-11-12] MEDS ORDERED: MetoCLOpramide 5 mg/mL 2 mL Inj IVPUSH PRN (14:50)
[2016-11-12] MEDS ORDERED: Albuterol-Ipratropium 3 mL Inhalation Solution NEB PRN (14:50)
[2016-11-12] MEDS ORDERED: Dexamethasone 4 mg/mL Inj IVPUSH PRN (14:50)
[2016-11-12] MEDS ORDERED: HYDROmorphone 1 mg/mL Inj IVPUSH PRN (14:50)
[2016-11-12] MEDS ORDERED: EPHEDrine Sulfate 50 mg/mL Inj IVPUSH PRN (14:50)
[2016-11-12] MEDS ORDERED: Ondansetron 2 mg/mL 2 mL Inj IVPUSH PRN ×2 (14:50→16:55)
[2016-11-12] MEDS ORDERED: Phenylephrine 10,000 mCg/mL Inj IVPUSH PRN (14:50)
--- NOTE | 2016-11-12 15:51 | NUR ---
Social Work- Initial Assessment Data: See Initial Assessment. Pt is a 71 year old female admitted 11/11/16 for left hip fracture, thigh hematoma per H&P. Pt's insurance is [facility] and [employer]. Pt's PCP is Felisa Waterman PA-C. Per pt's daughter, pt's identified support person is her spouse Philippe Magana [phone]. Pt's readmit risk level is 3. SW attempted initial assessment with pt at bedside but pt was out of room for surgery. T/C to pt's spouse Philippe Magana, regarding pt's discharge plan, no answer. T/C to pt's daughter Rajani Arredondo [phone] regarding pt's discharge plan. Daughter and Pt's Spouse were together and available to speak by phone. Per family, pt resides in [place] with her spouse in a single story home with a wheelchair lift from the garage to the main level. Pt she receives assistance with ADLs including bathing, dressing, and transportation. Pt is in a wheelchair at baseline and is typically independent with transfers. Pt's transfer ability has decreased over the past few months and pt is requiring more assistance from her . Pt's is able and willing to assist but is slightly limited by his knee replacements and fused discs in his back. Pt's is independent with feeding, meal prep, medication management, and chores such as housekeeping and laundry. Pt has a history of HH RN PT for wound care and continued strengthening, name of HH company is unknown. Pt's daughter identified that with regular PT and OT, pt's strength increases and she becomes independent with transfers again. Pt has a history of SNF 12 years ago in [place]. Pt has no LTC or VA benefits. Pt's DPOA is not on file, SW encouraged daughter to complete this paperwork and bring it to the hospital for pt's records. Pt's daughter states that pt and family are agreeable to whatever is necessary at discharge, including SNF or HH. Pt's spouse and daughter are available for assistance in the home after surgery, though pt's spouse will be primary caregiver. SW provided phone number and oriented daughter to location of SW phone number in patient's room. SW will await MD orders regarding SNF vs. HH based on medical necessity. SW will continue to follow. Assessment: Pt who is wheelchair bound at baseline. Plan: Pt is wheelchair bound at baseline. Pt is in surgery this afternoon. SW will await MD orders regarding SNF vs. HH based on medical necessity. SW will continue to follow. VINITA Olvera Addendum: 11/12/16 at 1601 by ONEL ORELLANA SS Amended: Links added.
[2016-11-12] MEDS ORDERED: Lactated Ringer's 1,000 ML IV ONE (16:33)
[2016-11-12] MEDS ORDERED: Sodium Biphos-Phos 133 mL Enema RECTAL PRN (16:55)
[2016-11-12] MEDS ORDERED: HYDROcodone-APAP 7.5-325 mg Tablet PO PRN (16:55)
[2016-11-12] MEDS ORDERED: Magnesium Hydroxide 10 mL Oral Concentration PO PRN (16:55)
[2016-11-12] MEDS ORDERED: diphenhydrAMINE 25 mg Capsule PO PRN (16:55)
[2016-11-12] MEDS ORDERED: Polyethylene Glycol (PEG) 17 Gm Powder PO PRN (16:55)
--- NOTE | 2016-11-12 17:06 | PCM.ORTHOP ---
Orthopedic Operative Report Date of Service: Nov 12, 2016 Pre Operative Diagnosis left subtrochanteric femoral shaft fracture Post Operative Diagnosis left subtrochanteric femoral shaft fracture Procedure left femur closed reduction intramedullary nail fixation Surgeon Surgeon: Jere Wells Assistants: Janusz Juarez Indication for Procedure left femur fracture Findings per dictation Details of Procedure Implant: Josie/Biomet 11X36 versa nail, 6.5X60, 80; 4.5X56mm distally Indications: This is Janet Magana is a 71-year-old female with left subtrochanteric femur fracture with extension. The risks versus benefits of open reduction and internal fixation were discussed with the patient in detail. The patient voiced understanding of the risks and agreed to proceed. The risks discussed were pain, bleeding, infection, damage to neurovascular structures, failure of procedure, need for further procedures, loss of limb function, loss of limb, heart attack, stroke, and . Verbal and written consent were obtained. Description of Operation: The patient was brought to the operating room. Patient name and surgical site were confirmed. Preoperative antibiotics were given. General anesthesia was administered. The patient was placed supine on the fracture table in the standard fashion. All bony prominences were well padded. Traction was applied to the operative leg and the fracture was closed reduced under C-arm guidance. The leg and hip were then prepped and draped in the usual sterile fashion. A small longitudinal incision was made proximal to the greater trochanter. Subcutaneous dissection was bluntly performed down to the tip of the greater trochanter. A 3.2 mm guide pin was then placed through the tip of the greater trochanter and into the femoral canal under fluoroscopic guidance. This was checked in both AP and lateral views. This pin was then over-reamed with a 14 mm reamer. The ball tipped guide wire was placed into the medullary canal and advanced into the center of the distal metaphysis. The guide wire was then over-reamed in 0.5 mm increments until bony chatter was achieved at the isthmus. A tire gauge was used to determine the length of the nail. The nail implant was loaded onto the insertion jig and then gently malleted into position over the guide wire. A small poke hole was used anteriorly for a ball-tip pusher reduction instrument. The fracture was well reduced as confirmed with C-arm in AP and lateral views. The guide was removed. The guide pin for the proximal screws was inserted to a point within 25 mm tip-to-apex distance on AP and lateral views. The proximal 2 screws were selected and inserted. The traction was removed and orthogonal views with fluoroscopy determined reduction of our fracture with appropriate placement of hip screw centered with a tip-to-apex distance less than 25 mm. The distal interlocking screw was then inserted in the standard fashion using the perfect algaaciq technique under C-arm guidance. All wounds were thoroughly irrigated by bulb irrigation. Hemostasis was obtained with electrocautery. The fascia was closed with 0 Vicryl suture. The subcutaneous space was closed with interrupted 2-0 Vicryl suture. The skin was closed with hever. Hard copy radiographs confirmed adequate reduction and placement of hardware. The patient was extubated without difficulty and transferred to the PACU in stable condition. I was present and scrubbed for the entire procedure. Description of Findings: severely osteopenic subtrochanteric femur fracture with extension Specimens Obtained: none You may WBAT. Keep your wound clean, dry and intact. We will change your dressing in 2 days and continue daily dressing changes PT/OT will be ordered. Return to clinic in 2 weeks with me with 2 view femur x-rays and staple/suture removal with Steri-Strips application. You may get your wound wet at that time. Please keep the affected extremity elevated when possible. You may use ice and/or heat as needed for comfort. All questions and concerns were addressed. Please feel free to call with any further questions, comments, and/or concerns. Grafts, Implants: Implants-See Implant Record Complications There were no periprocedural complications identified. Condition Stable Anesthetic Administered: GA Catheters: None Output, Estimated Blood Loss: 10 Blood Admin during surgery: No (there is a) Surgical Cast or Splint: Other Surgical Specimen Removed: No Specimen sent to Pathology: No ( when necessary) copies to: Jere Wells MD, Christopher L MD Nov 12, 2016 17:06
[2016-11-12] MEDS: fentaNYL-PF 50 mCg/mL 2 mL Inj IVPUSH PRN ×2 (17:19→17:35)
--- NOTE | 2016-11-12 17:26 | PCM.ANEP1 ---
Post Anesthesia PACU Phase 1 Assessment Anesthetic Administered: MAC Level of Alertness: Awake, talking Pain: No (RN is aware) Nausea or Vomiting: No CV Function & Hydration Stable: Yes Airway Device: Oxygen Delivery: Room Air Lungs: Normal Air Movement PACU Phase 2 Assessment Complications: No Follow up Care: N/A Patient Instructions Provided: N/A Emmanuel Rivera MD Nov 12, 2016 17:26
--- NOTE | 2016-11-12 18:29 | DRSVH ---
PROCEDURE: X-RAY RIGHT FEMUR, TWO VIEWS ([id number]) INDICATIONS: 71 year-old female with right hip pain after fall, with known left femoral fracture. TECHNIQUE: 4 views of the femur were acquired. COMPARISON: [facility], CT, CT HIP LT WO CON, 11/11/2016, 20:47. FINDINGS: Bones: No fractures or dislocations. As before, the pelvic ring appears gracile with shallow acetab ular fossa, consistent with chronic neuromuscular disorder. No suspicious bony lesions. Soft tissues: No suspicious soft tissue calcifications or masses. There is severe right thigh muscle atrophy. Torres catheter is again noted. IMPRESSION: No acute bony injuries of the right femur. Dictated by: Hansel Michelle M.D. on 11/12/2016 at 18:25 Approved by: Hansel Michelle M.D. on 11/12/2016 at 18:27
--- NOTE | 2016-11-12 18:47 | NUR ---
POST-OP Patient received from PACU via a hospital bed. On O2 at 3 LPM via NC. IVF restarted. Dressing is CDI. IFC intact and draining to jordy colored UO. SCD's placed on. Via FELDT scale patients pain level is 8/10. Denies nausea. No emesis noted. Denies SOB. Oriented to room and call light.
[2016-11-12] MEDS: Senna-Docusate 8.6-50 mg Tablet PO SCH (19:28)
[2016-11-12] MEDS: HYDROcodone-APAP 5-325 mg Tablet PO PRN (21:00)
--- NOTE | 2016-11-12 22:52 | PCM.PNMED ---
Subjective Date of Service Nov 12, 2016 Subjective Patient states that she does not want any narcotics she really does not feel pain and she just was uncomfortable. She also declined any kind of muscle relaxant medication. Family has the stress the fact that the [employer] and will not accept blood transfusions. Has been discussed patient's inability to lay flat, patient's. 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 He states that patient has had a clot while being on Coumadin, because there was already an IVC filter, another IVC filter could not be placed Exam Vital Signs Vital Sign - Last Date Time Temp Pulse Resp B/P Pulse Ox O2 Delivery O2 Flow Rate FiO2 11/12/16 21:21 36.6 103 20 103/67 100 Nasal Cannula 2.50 Intake and Output 11/11/16 11/11/16 11/12/16 Cumulative From/Thru 15:00 23:00 07:00 11/11/16 16:08 - 11/12/16 06:55 Intake Total 100 ml 100 ml Output Total 700 ml 700 ml Balance -600 ml -600 ml Intake Oral 0 ml 0 ml IV Total 100 ml 100 ml Output Urine Total 700 ml 700 ml # Bowel Movements 0 0 Exam General: Awake and alert sitting up in hospital bed somewhat uncomfortable, appropriately interactive HEENT: Normocephalic, atraumatic. External ears without defect. Neck: Supple with full range of motion. No jugular venous distension. Cardiovascular: Regular rate with regular rhythm, no murmurs, rubs, or gallops appreciated Pulmonary: Clear to auscultation bilaterally with no crackles, wheezes, or rhonchi. Normal respiratory effort with no use of accessory muscles. Good air movement Abdomen: Bowel tones present. Soft, nontender. Back: Spina bifida. Spinal midline. Lower back deformities, patient attributes this to collections of spinal fluid Extremities: Significantly distal lower extremities, no sensation of extremities distal pelvis. Good Pedal pulses bilaterally. No pain to palpation Neurological: No focal deficits Psychiatric: Normal mood and affect. Alert and oriented to person, place, and time. IVs and Medications IV Fluids Normal saline 100 mL/h Medications Reviewed: Medications were reviewed in detail Lab and Diagnostics Result Diagram: 11/12/1610 11/12/16 0510 X-Rays, CTs and MRIs . X-RAY PELVIS WITH BILATERAL HIPS, 3 VIEWS IMPRESSION: Proximal femoral fracture thought to be subtrochanteric but involving the lesser trochanter. Dictated by: Uri Haji M.D. on 11/11/2016 at 20:31 X-RAY LEFT FEMUR, TWO VIEWS IMPRESSION: Proximal left femoral diaphysis fracture on the margin of images. No distal femoral fracture. Bones are osteoporotic. Dictated by: Uri Haji M.D. 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 Acute disease is not seen in the chest. Bones are osteoporotic. Moderate rotoscoliosis. Dictated by: Uri Haji M.D. on 11/11/2016 at 20:40 CT ANGIO CHEST PULMONARY EMBOLISM IMPRESSION: No evidence for pulmonary embolus. Probable large hiatal hernia. I cannot track the distal esophagus to look for the location of the esophageal gastric junction. A probable hiatal hernia rather than ruptured hemidiaphragm appears to be chronic and involves bowel loops which are nonobstructive. Dictated by: Uri Haji M.D. 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 Acute fracture of the left femur the proximal diaphysis and involving the inferior aspect of the lesser trochanter with displacement of the major distal fragment posteriorly the thickness of the shaft of the femur. No fracture of the pelvic ring. Dictated by: Uri Haji M.D. on 11/11/2016 at 21:06 Assessment & Plan Mrs. Magana is a 71-year-old female with past medical history of spina bifida , multiple PEs and DVTs admitted for a left hip fracture Left hip fracture Present on admission. Ongoing - Imaging confirmed - Orthopedics consult, awaiting recommendations - Dr. 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 --Plan to start heparin drip in the AM ( recommendation is to start after 48 hrs , she is very high risk), restart coumadin. on 11/13 AM: Will discuss with Dr. Nichole Right hip pain: -- X-rays ordered D-dimer, present on admission. Ongoing - 1.73 in ED - CT angiogram negative - Lower extremity ultrasound showed Suspect chronic DVT involving the distal left superficial femoral and popliteal veins otherwise the common femoral and proximal/mid superficial femoral veins are patent. Normocytic anemia. Present on admission. Ongoing - H&H 11.3/33.2 - Most likely secondary to recent ground-level fall - Patient Adventism. No blood products - Continue to monitor Chronic constipation. Present on admission. Ongoing - MiraLAX Patient Status: Patient was admitted under inpatient status with expected length of stay greater than two midnights due to severity of presenting symptoms , risk of adverse event, and complexity of treatment plan. Pain Evaluation: Other (patient refused pain medications) GI Prophylaxis: H2 carrillo (yuko) VTE Prophylaxis: SCDs VTE Mechanical Devices: Intermittant Pneumatic CD Resuscitation Status: CPR: Attempt Resuscitation Time spent 30 min Stella Pineda DO Nov 12, 2016 22:52
[2016-11-13] VITALS (7 sets, daily range): BP systolic 90–112; BP diastolic 47–67; PULSE 80–99; RESP 16–20; O2SAT 98–100
[2016-11-13] MEDS: 0.9% Sodium Chloride 1,000 ML IV SCH ×3 (00:09→19:59)
[2016-11-13] MEDS: Sodium Chloride LOK Flush 10 mL Syringe IV SCH ×3 (00:14→16:50)
[2016-11-13] MEDS: HYDROcodone-APAP 5-325 mg Tablet PO PRN ×4 (00:22→18:33)
--- NOTE | 2016-11-13 02:04 | NUR ---
Sputum This evening at approx 0020 patient coughed up thick bloody sputum X1. Patient has not presented with a productive or persistent cough this evening; only states an occasional dry cough. Additional coughing has not been observed patient since this episode. Night hospitalist contacted and states no new orders at this time. Will continue to monitor, and continue Q1 hour checks.
[2016-11-13 06:06] LABS: INR 1.07 ratio
--- NOTE | 2016-11-13 07:24 | PCM.PNORTH ---
Subjective Date of Service: Nov 13, 2016 Visit Information: Reason for Visit Left Hip Fx, Thigh Hematoma, Anticoagulated Surgery/Surgery Date Post-Op Day # Date of Admission: November 11, 2016 at 21:51 Hospital Day # Subjective Found patient awake and alert and sitting up in bed. No complaints of pain at this time. Discussed her mobility issues at baseline at some length this morning. Patient indicates she has no use of her legs whatsoever but does partially stand at bedside when putting on her close. Patient indicates her right leg is her "good leg" but her right knee has been giving out on her more often recently. Patient indicates she has no sensation in the lower extremities and no active function. Patient does have specific positioning needs secondary to a thecal sac at her left posterior hip which was compressed causes her some significant medical issues. She does use a specific wheelchair in her home and a different wheelchair when she is out. She relates that her is ill and not in good condition and is really minimal help. She does have a daughter in the area but she works and will not be able to be at her home to a large extent. I have discussed with patient likely discharged to longterm facility for safety and rehabilitation purposes and she is in agreement with this. I have asked patient to speak with social media content specialist and explained the role and she is readily willing to do this to make plans for discharge. Postop General: No Complaints, No Shortness of Breath, No Chest Pain Pain Management: PO Objective Exam Objective Alert and oriented 3 and pleasant. Interoperative dressing are clean dry and intact. Thigh is swollen secondary to her injury with ecchymosis. No evidence of DVT present. Sensation and function are absent at the lower extremities bilaterally Bilateral SCDs in place. Vital Signs and I/O Vital Sign - Last Date Time Temp Pulse Resp B/P Pulse Ox O2 Delivery O2 Flow Rate FiO2 11/13/16 06:33 108/67 11/13/16 06:05 36.6 90 18 100 11/13/16 00:12 Room Air 11/12/16 21:21 2.50 Intake and Output 11/12/16 11/12/16 11/13/16 Cumulative From/Thru 15:00 23:00 07:00 11/11/16 16:08 - 11/13/16 06:52 Intake Total 1000 ml 300 ml 1161 ml 2561 ml Output Total 210 ml 300 ml 1210 ml Balance 1000 ml 90 ml 861 ml 1351 ml Intake Oral 440 ml 440 ml IV Total 1000 ml 300 ml 721 ml 2121 ml Output Urine Total 300 ml 1000 ml Estimated Blood Loss 210 ml 210 ml # Bowel Movements 0 Lab & Micro Results Laboratory Tests Test 11/13/16 04:55 Prothrombin Time 11.5sec (8.1-12.5) Prothromb Time International Ratio 1.07ratio Result Diagram: 11/12/16 0510 11/12/16 0510 General Appearance: Alert, Oriented X3, Cooperative, No Acute Distress Extremities: No Compartment Syndrom Noted, Thigh & Calf Soft/Nontender Activity: Activity per PT, Ambulate with PT (weightbearing as tolerated on the left lower extremity for transfers. Physical therapy please work on bed mobility, positioning and transferring with patient's primary in-home wheelchair ) Catheters: None, Urethral 2 Way Torres (Torres in place on postop day #1. Discontinue Torres on postoperative day #1 after first PT session.) Assessment & Plan Impression Patient is a 71-year-old female with spina bifida. Her condition has been deteriorating for many years and she currently has no ability to pursue active gait and only stands while leaning on her bed to pull up her pants in the morning. She has no sensation or function in the lower extremities. Patient is generally independent at baseline using wheelchair and sliding transfers but is gradually becoming weaker over time. Problems: Plan Postop day #1 from left hip long IM nail placement on 11/12/[address] Eitan Wells. Weightbearing as tolerated on the left lower extremity for transfers only. Continue formal physical therapy for bed mobility, transfers and safety. Continue occupational therapy as needed for bed mobility, transfers and safety. Continue by mouth pain medications as needed. Continue bridging to chronic warfarin per pharmacy with hospitalist service input as needed. Interoperative dressings at left hip will be changed on postop day #2. Torres catheter will be DC'd on postop day #1 after first PT session. Nursing please measure for an fit bilateral thigh high ANNY hose. Left leg may need to be fitted separately with a larger hose than the right leg. Nursing: Patient may need special positioning secondary to spina bifida and thecal sac at posterior left hip which will require reduced compression. Patient will advise regarding positioning aids. Follow-up in 2 weeks at [facility] orthopedic clinic with Dr. Jere roy for staple removal, Steri-Strip placement and wound check with left two- view femur x-rays on arrival. Follow-up in 6 weeks at [facility] orthopedic clinic with Dr. Jere roy with left two-view femur x-rays on arrival. [facility] service for their help in the medical management of this patient. Anticipate discharge to longterm facility by hospitalist service when patient is medically stable to do so. VTE Prophylaxis: Sub-Q Heparin (Unfractionated) (bridging to chronic warfarin made be accomplished with heparin or other pertinent pharmacy and hospitalist service.), Theraputic Anticoag with Warfarin (patient will be bridged back to her chronic warfarin dosing per pharmacy management with hospitalist service.), SCDs, ANNY Goss Resuscitation Status: CPR: Attempt Resuscitation Janusz Juarez PA-C Nov 13, 2016 07:24
--- NOTE | 2016-11-13 07:29 | PCM.PNMED ---
Subjective Date of Service Nov 13, 2016 Subjective Patient is seen and examined. Patient's and daughter's questions were answered regarding the care, diagnostic tests and plan. She states that now she has postsurgical pain, though she did not have any pain prior to surgery. She is hoping that the Torres catheter will be left in for 1 more day at least as she self catheterizes herself at home on a daily basis. No other concerns. Exam Vital Signs Vital Sign - Last Date Time Temp Pulse Resp B/P Pulse Ox O2 Delivery O2 Flow Rate FiO2 11/13/16 06:33 108/67 11/13/16 06:05 36.6 90 18 100 11/13/16 00:12 Room Air 11/12/16 21:21 2.50 Intake and Output 11/12/16 11/12/16 11/13/16 Cumulative From/Thru 15:00 23:00 07:00 11/11/16 16:08 - 11/13/16 06:52 Intake Total 1000 ml 300 ml 1161 ml 2561 ml Output Total 210 ml 300 ml 1210 ml Balance 1000 ml 90 ml 861 ml 1351 ml Intake Oral 440 ml 440 ml IV Total 1000 ml 300 ml 721 ml 2121 ml Output Urine Total 300 ml 1000 ml Estimated Blood Loss 210 ml 210 ml # Bowel Movements 0 Exam General: Awake and alert, laying on her left side today HEENT: Normocephalic, atraumatic. External ears without defect. Neck: Supple with full range of motion. No jugular venous distension. Cardiovascular: Regular rate with regular rhythm, no murmurs, rubs, or gallops appreciated Pulmonary: Clear to auscultation bilaterally with no crackles, wheezes, or rhonchi. Normal respiratory effort with no use of accessory muscles. Good air movement Abdomen: Bowel tones present. Soft, nontender. Back: Spina bifida. Spinal midline. Lower back deformities, patient attributes this to collections of spinal fluid Extremities: Significantly distal lower extremities, no sensation of extremities distal pelvis. Good Pedal pulses bilaterally. No pain to palpation Neurological: No focal deficits Psychiatric: Normal mood and affect. Alert and oriented to person, place, and time. IVs and Medications Medications Reviewed: Medications were reviewed in detail Lab and Diagnostics Laboratory Tests Test 11/13/16 04:55 11/13/16 19:30 Prothrombin Time 11.5sec (8.1-12.5) Prothromb Time International Ratio 1.07ratio White Blood Count 5.3th/mm3 (3.8-10.1) Red Blood Count 2.58mil/mm3 (3.90-5.20) Hemoglobin 7.4g/dL (12.0-15.6) Hematocrit 22.7% (35.0-46.0) Mean Corpuscular Volume 88.0fL (81-100) Mean Corpuscular Hemoglobin 28.7pg (27.0-35.0) Mean Corpuscular Hemoglobin Concent 32.6% (32.0-37.0) Red Cell Distribution Width 12.7% (12.3-15.4) Platelet Count 174bil/L (150-400) Sodium Level 138mEq/L (134-144) Potassium Level 3.9mEq/L (3.5-5.2) Chloride Level 105mEq/L (97-108) Carbon Dioxide Level 22mmol/L (18-29) Blood Urea Nitrogen 16mg/dL (8-27) Creatinine 0.43mg/dL (0.57-1.00) Estimat Glomerular Filtration Rate 209mL/min (>59) Glucose Level 123mg/dL (60-99) Calcium Level 8.4mg/dL (8.5-10.1) Result Diagram: 11/12/16 0510 11/12/16 0510 X-Rays, CTs and MRIs . X-RAY PELVIS WITH BILATERAL HIPS, 3 VIEWS IMPRESSION: Proximal femoral fracture thought to be subtrochanteric but involving the lesser trochanter. Dictated by: Uri Haji M.D. on 11/11/2016 at 20:31 X-RAY LEFT FEMUR, TWO VIEWS IMPRESSION: Proximal left femoral diaphysis fracture on the margin of images. No distal femoral fracture. Bones are osteoporotic. Dictated by: Uri Haji M.D. 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 Acute disease is not seen in the chest. Bones are osteoporotic. Moderate rotoscoliosis. Dictated by: Uri Haji M.D. on 11/11/2016 at 20:40 CT ANGIO CHEST PULMONARY EMBOLISM IMPRESSION: No evidence for pulmonary embolus. Probable large hiatal hernia. I cannot track the distal esophagus to look for the location of the esophageal gastric junction. A probable hiatal hernia rather than ruptured hemidiaphragm appears to be chronic and involves bowel loops which are nonobstructive. Dictated by: Uri Haji M.D. 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 Acute fracture of the left femur the proximal diaphysis and involving the inferior aspect of the lesser trochanter with displacement of the major distal fragment posteriorly the thickness of the shaft of the femur. No fracture of the pelvic ring. Dictated by: Uri Haji M.D. on 11/11/2016 at 21:06 Assessment & Plan Mrs. Magana is a 71-year-old female with past medical history of spina bifida , multiple PEs and DVTs admitted for a left hip fracture Acute anemia secondary to blood loss that is inherent and inherent risk of orthopedic surgery: Hemoglobin dropped to 7.8 on 11/13 -- Patient is a Religion, no blood products are expected -- We will continue to monitor Left hip fracture s/p left femur closed reduction intramedullary nail fixation - Imaging confirmed - Orthopedics consult, awaiting recommendations - Dr. Nichole is the surgeon - Religion, no blood products excepted --Notified surgeon of her [employer] shunt and the fact that patient had thrombosis in spite of coumadin in the past. --Plan to start heparin drip/therapeutic enoxaparin on 11/14 ( recommendation is to start after 48 hrs per up-to-date then patient undergo is a high-risk surgery such as orthopedic surgery due to increased risk of bleeding in the first 24-48 hour phase, she is very high risk), restart coumadin, give enoxaparin 40 mg IV QD until he heparin drip was started on her enoxaparin and increased to therapeutic dose --Ortho: "Follow-up in 2 weeks at [facility] orthopedic clinic with Dr. Jere roy for staple removal, Steri-Strip placement and wound check with left two-view femur x-rays on arrival. Follow-up in 6 weeks at [facility] orthopedic clinic with Dr. Jere roy with left two-view femur x-rays on arrival. Orthopedic [facility] service for their help in the medical management of this patient. Anticipate discharge to half-way facility by hospitalist service when patient is medically stable to do so. VTE Prophylaxis: Sub-Q Heparin (Unfractionated) (bridging to chronic warfarin made be accomplished with heparin or other pertinent pharmacy and hospitalist service.), Theraputic Anticoag with Warfarin (patient will be bridged back to her chronic warfarin dosing per pharmacy management with hospitalist service.), SCDs, ANNY Goss" -- Continue PT OT Right hip pain: -- X-rays ordered, negative for fracture in right femur D-dimer, present on admission. - 1.73 in ED - CT angiogram negative - Lower extremity ultrasound showed Suspect chronic DVT involving the distal left superficial femoral and popliteal veins otherwise the common femoral and proximal/mid superficial femoral veins are patent. Normocytic anemia. Present on admission. Ongoing - H&H 11.3/33.2 - Most likely secondary to recent ground-level fall - Patient Religion. No blood products - Continue to monitor Chronic constipation. Present on admission. Ongoing - MiraLAX -- Encouraged patient to take MiraLAX and senna Patient Status: Patient was admitted under inpatient status with expected length of stay greater than two midnights due to severity of presenting symptoms , risk of adverse event, and complexity of treatment plan. GI Prophylaxis: H2 carrillo (yuko) VTE Prophylaxis: SCDs VTE Mechanical Devices: Intermittant Pneumatic CD Resuscitation Status: CPR: Attempt Resuscitation Time spent 30 min Stella Pineda DO Nov 13, 2016 07:29
--- NOTE | 2016-11-13 07:51 | PCM.PHAPRO ---
Progress Date 1-Nov 2-Nov INR 1.37 1.07 INR change -0.3 Warf Dose 0 - PT IN SURGERY 5 OT Bennett Stephenson Pharm.D Nov 13, 2016 07:51
[2016-11-13] MEDS: Senna-Docusate 8.6-50 mg Tablet PO SCH ×2 (08:30→16:49)
[2016-11-13] MEDS: Polyethylene Glycol (PEG) 17 Gm Powder PO SCH (09:01)
--- NOTE | 2016-11-13 15:21 | NUR ---
Evaluation completed. Please go to "Notes" then click on "Assessments and Notes" (bottom left corner of screen). Then select appropriate discipline tab on top of screen.
--- NOTE | 2016-11-13 17:20 | NUR ---
POST-OP PROGRESS [place] 1 tab PO has been adequate for pain control. Tolerating liquids PO and her diet well. She had 1 episode of nausea while working with PT but she refused to take any medication for it. No emesis noted. Denies SOB. Pls. refer to PT notes RE: Activity. Dressing is CDI. IFC intact and draining to jordy colored UO. Turned and repositioned.
[2016-11-13 20:07] LABS: Mean Corpuscular Hemoglobin 28.7 pg (27.0-35.0)
[2016-11-14] MEDS: Sodium Chloride LOK Flush 10 mL Syringe IV SCH ×3 (00:30→17:08)
[2016-11-14 00:45] VITALS: BP 90/46; PULSE 84; RESP 16; O2SAT 98
[2016-11-14] MEDS ORDERED: 0.9% Sodium Chloride 500 ML IV ONE (00:45)
--- NOTE | 2016-11-14 01:59 | NUR ---
MOLLY This evening patient has presented with low blood pressure; BP 90/46 HR 84. Patient denies light headedness, SOB, and appears asymptomatic. paged, and an order for one time bolus of NS 500ml has been written. During administration of bolus, IV infiltrated. Fluids stopped, IV removed and warm compress applied. New IV placed in right forearm and fluids resumed. Will reassess BP after fluids are complete. Will continue to monitor and continue Q1 hour checks. Addendum: 11/14/16 at 0210 by RIAZ MORALES RN upon reassessment BP 96/54 and HR 89. notified. no new orders at this time.
[2016-11-14 02:10] VITALS: BP 96/54
[2016-11-14 02:21] LABS: INR 1.06 ratio
[2016-11-14 03:10] VITALS: BP 91/50; PULSE 85
[2016-11-14 04:07] LABS: Mean Corpuscular Hemoglobin 28.7 pg (27.0-35.0); Mean Corpuscular Volume 89.1 fL (81-100)
[2016-11-14 05:45] VITALS: BP 97/59; PULSE 92; RESP 16; O2SAT 100
--- NOTE | 2016-11-14 07:02 | PCM.PNORTH ---
Subjective Date of Service: Nov 14, 2016 Visit Information: Reason for Visit Left Hip Fx, Thigh Hematoma, Anticoagulated Surgery/Surgery Date Post-Op Day # Date of Admission: November 11, 2016 at 21:51 Hospital Day # Subjective Fellow patient awake and alert and sitting up in bed. No complaints of pain at this time. Patient is well-positioned with bilateral ANNY hose and bilateral SCDs in place. Discussed positioning with patient and accomplished bandage changes morning. Advised patient who wounds are in good condition. Patient is concerned regarding physical therapy and increase mobility. We have reassured her that therapy will perform only gentle range of motion and assist her in transfer training. I have advised patient that she may discuss positioning and her mobility needs with therapy and I will be happy to help her with that. Postop General: No Complaints, No Shortness of Breath, No Chest Pain Pain Management: PO Objective Exam Objective Alert and oriented 3 and pleasant. Intraoperative dressings are clean dry and intact. Intraoperative dressings are changed postoperative dressings this morning in the form of Island dressing with 4 x 4 reinforcement. Wounds are in good condition and very minimal drainage is noted. Toe wiggle and sensation are absent at the lower extremities bilaterally secondary to spina bifida and chronic condition. Left thigh is ecchymotic and moderately swollen but appears to be less swollen than it was yesterday morning. Torres is in place and working. SCDs and ANNY hose are in place. Patient is positioned on right side for comfort this morning. Vital Signs and I/O Vital Sign - Last Date Time Temp Pulse Resp B/P Pulse Ox O2 Delivery O2 Flow Rate FiO2 11/14/16 05:45 37.0 92 16 97/59 100 Room Air 11/12/16 21:21 2.50 Intake and Output 11/13/16 11/13/16 11/14/16 Cumulative From/Thru 15:00 23:00 07:00 11/11/16 16:08 - 11/14/16 06:37 Intake Total 506 ml 450 ml 700 ml 4217 ml Output Total 650 ml 750 ml 2610 ml Balance 506 ml -200 ml -50 ml 1607 ml Intake Oral 450 ml 200 ml 1090 ml IV Total 506 ml 500 ml 3127 ml Output Urine Total 650 ml 750 ml 2400 ml Estimated Blood Loss 210 ml # Bowel Movements 0 Lab & Micro Results Laboratory Tests Test 11/13/16 19:30 11/14/16 01:50 White Blood Count 5.3th/mm3 (3.8-10.1) 5.0th/mm3 (3.8-10.1) Red Blood Count 2.58mil/mm3 (3.90-5.20) 2.58mil/mm3 (3.90-5.20) Hemoglobin 7.4g/dL (12.0-15.6) 7.4g/dL (12.0-15.6) Hematocrit 22.7% (35.0-46.0) 23.0% (35.0-46.0) Mean Corpuscular Volume 88.0fL (81-100) 89.1fL (81-100) Mean Corpuscular Hemoglobin 28.7pg (27.0-35.0) 28.7pg (27.0-35.0) Mean Corpuscular Hemoglobin Concent 32.6% (32.0-37.0) 32.2% (32.0-37.0) Red Cell Distribution Width 12.7% (12.3-15.4) 13.0% (12.3-15.4) Platelet Count 174bil/L (150-400) 184bil/L (150-400) Sodium Level 138mEq/L (134-144) Potassium Level 3.9mEq/L (3.5-5.2) Chloride Level 105mEq/L (97-108) Carbon Dioxide Level 22mmol/L (18-29) Blood Urea Nitrogen 16mg/dL (8-27) Creatinine 0.43mg/dL (0.57-1.00) Estimat Glomerular Filtration Rate 209mL/min (>59) Glucose Level 123mg/dL (60-99) Calcium Level 8.4mg/dL (8.5-10.1) Prothrombin Time 11.4sec (8.1-12.5) Prothromb Time International Ratio 1.06ratio Result Diagram: 11/14/16 0150 11/13/16 1930 General Appearance: Alert, Oriented X3, Cooperative, No Acute Distress Extremities: No Compartment Syndrom Noted, Thigh & Calf Soft/Nontender Activity: Activity per PT, Ambulate with PT (weightbearing as tolerated on the left lower extremity for transfers. Physical therapy please work on bed mobility, positioning and transferring with patient's primary in-home wheelchair ) Catheters: Urethral 2 Way Torres (Torres in place on postop day #1. Discontinue Torres on postoperative day #1 after first PT session.) Assessment & Plan Plan Postop day #2 from left hip long IM nail placement on 11/12/[address] Jere Wells. Hemoglobin 7.4, hematocrit 23 Patient is Zoroastrianism and will not be accepting blood products. Weightbearing as tolerated on the left lower extremity for transfers only. Continue formal physical therapy for bed mobility, transfers and safety. Patient has some anxiety regarding mobilizing postoperatively. Continue occupational therapy as needed for bed mobility, transfers and safety. Continue by mouth pain medications as needed. Continue bridging to chronic warfarin per pharmacy dosing and monitoring with hospitalist managing.. Interoperative dressings changed to postoperative dressing this morning and wounds are found to be in good condition. Patient straight cath's for urination at baseline. Torres catheter is in place and will remain so to avoid numerous straight cathing and to monitor output. Hospitalist service will manage as they feel appropriate. Nursing: Patient may need special positioning secondary to spina bifida and thecal sac at posterior left hip which will require reduced compression. Patient will advise regarding positioning. Follow-up in [address] [facility] orthopedic clinic with Dr. Jere Wells for staple removal, Steri-Strip placement and wound check with left two- view femur x-rays on arrival. Follow-up in [address] [facility] orthopedic clinic with Dr. Jere Wells with left two-view femur x-rays on arrival. Orthopedic [facility] service for their help in the medical management of this patient. Anticipate discharge to longterm facility by hospitalist service when patient is medically stable to do so. VTE Prophylaxis: Sub-Q Enoxaparin, Theraputic Anticoag with Warfarin (patient will be bridged back to her chronic warfarin dosing per pharmacy management with hospitalist service.), SCDs, ANNY Goss Resuscitation Status: CPR: Attempt Resuscitation Janusz Juarez PA-C Nov 14, 2016 07:02 Janusz Juarez PA-C Nov 14, 2016 07:02
[2016-11-14] MEDS: Senna-Docusate 8.6-50 mg Tablet PO SCH ×2 (08:10→20:19)
[2016-11-14] MEDS: HYDROcodone-APAP 5-325 mg Tablet PO PRN ×2 (08:11→13:00)
[2016-11-14] MEDS: Polyethylene Glycol (PEG) 17 Gm Powder PO SCH (08:11)
[2016-11-14] MEDS ORDERED: Heparin 5,000 Unit/mL Inj SUBQ ONE (09:03)
--- NOTE | 2016-11-14 09:27 | NUR ---
CANDI signed by pt
--- NOTE | 2016-11-14 14:48 | PCM.PNMED ---
Subjective Date of Service Nov 14, 2016 Subjective Patient is seen and is examined . She just received 1 dose of heparin subcutaneous this morning. Explained to her that there are risks and benefits of anticoagulation at this point, as we are 48 hours Post surgery. Her hemoglobin seems to be recovering slowly. She was started on enoxaparin therapeutic dose this afternoon. Her lab results and medical management are discussed with the family. Once again, she is asked to take the bowel regimen offered by the nurse, she politely declined. Exam Vital Signs Vital Sign - Last Date Time Temp Pulse Resp B/P Pulse Ox O2 Delivery O2 Flow Rate FiO2 11/14/16 05:45 37.0 92 16 97/59 100 Room Air 11/12/16 21:21 2.50 Intake and Output 11/13/16 11/13/16 11/14/16 Cumulative From/Thru 15:00 23:00 07:00 11/11/16 16:08 - 11/14/16 06:37 Intake Total 506 ml 450 ml 700 ml 4217 ml Output Total 650 ml 750 ml 2610 ml Balance 506 ml -200 ml -50 ml 1607 ml Intake Oral 450 ml 200 ml 1090 ml IV Total 506 ml 500 ml 3127 ml Output Urine Total 650 ml 750 ml 2400 ml Estimated Blood Loss 210 ml # Bowel Movements 0 Exam General: Awake and alert, laying on her left side today HEENT: Normocephalic, atraumatic. External ears without defect. Neck: Supple with full range of motion. No jugular venous distension. Cardiovascular: Regular rate with regular rhythm, no murmurs, rubs, or gallops appreciated Pulmonary: Clear to auscultation bilaterally with no crackles, wheezes, or rhonchi. Normal respiratory effort with no use of accessory muscles. Good air movement Abdomen: Bowel tones present. Soft, nontender. Back: Spina bifida. Spinal midline. Lower back deformities, patient attributes this to collections of spinal fluid Skin: She has an ecchymotic spot on the left hip where she initially fell, she says it is much reduced in size, non-tender to palpation, no hematoma is palpated. Extremities: Significantly distal lower extremities, no sensation of extremities distal pelvis. Good Pedal pulses bilaterally. No pain to palpation Neurological: No focal deficits Psychiatric: Normal mood and affect. Alert and oriented to person, place, and time. IVs and Medications IV Fluids 50 cc/hr NSS Medications Reviewed: Medications were reviewed in detail Lab and Diagnostics Result Diagram: 11/14/16 0740 11/14/16 0740 X-Rays, CTs and MRIs . X-RAY PELVIS WITH BILATERAL HIPS, 3 VIEWS IMPRESSION: Proximal femoral fracture thought to be subtrochanteric but involving the lesser trochanter. Dictated by: Uri Haji M.D. on 11/11/2016 at 20:31 X-RAY LEFT FEMUR, TWO VIEWS IMPRESSION: Proximal left femoral diaphysis fracture on the margin of images. No distal femoral fracture. Bones are osteoporotic. Dictated by: Uri Haji M.D. 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 Acute disease is not seen in the chest. Bones are osteoporotic. Moderate rotoscoliosis. Dictated by: Uri Haji M.D. on 11/11/2016 at 20:40 CT ANGIO CHEST PULMONARY EMBOLISM IMPRESSION: No evidence for pulmonary embolus. Probable large hiatal hernia. I cannot track the distal esophagus to look for the location of the esophageal gastric junction. A probable hiatal hernia rather than ruptured hemidiaphragm appears to be chronic and involves bowel loops which are nonobstructive. Dictated by: Uri Haji M.D. 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 Acute fracture of the left femur the proximal diaphysis and involving the inferior aspect of the lesser trochanter with displacement of the major distal fragment posteriorly the thickness of the shaft of the femur. No fracture of the pelvic ring. Dictated by: Uri Haji M.D. on 11/11/2016 at 21:06 Assessment & Plan Mrs. Magana is a 71-year-old female with past medical history of spina bifida , multiple PEs and DVTs admitted for a left hip fracture Acute anemia secondary to blood loss that is inherent and inherent risk of orthopedic surgery: Hemoglobin dropped to 7.8 on 11/13 -- Patient is a Uatsdin, no blood products are expected -- We will continue to monitor Left hip fracture s/p left femur closed reduction intramedullary nail fixation - Imaging confirmed - Orthopedics consult, awaiting recommendations - Dr. 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 -enoxaparin and increased to therapeutic dose, continue coumadin per pharmacy. Will monitor the ecchymotic spot as well as H&H. --Ortho: "Follow-up in 2 weeks at [facility] orthopedic clinic with Dr. Jere roy for staple removal, Steri-Strip placement and wound check with left two-view femur x-rays on arrival. Follow-up in 6 weeks at [facility] orthopedic clinic with Dr. Jere roy with left two-view femur x-rays on arrival. Orthopedic [facility] service for their help in the medical management of this patient. Anticipate discharge to correction facility by hospitalist service when patient is medically stable to do so. VTE Prophylaxis: Sub-Q Heparin (Unfractionated) (bridging to chronic warfarin made be accomplished with heparin or other pertinent pharmacy and hospitalist service.), Theraputic Anticoag with Warfarin (patient will be bridged back to her chronic warfarin dosing per pharmacy management with hospitalist service.), SCDs, ANNY Goss" -- Continue PT OT -- Discontinued dilaudid as she is not taking it Chronic osteoporosis: -- calcitonin nasal spray and vit D home meds Chronic neurogenic bladder: -- Plan to d/c [facility] tomorrow as she will have to discharge home. Right hip pain: -- X-rays ordered, negative for fracture in right femur D-dimer, present on admission. - 1.73 in ED - CT angiogram negative - Lower extremity ultrasound showed Suspect chronic DVT involving the distal left superficial femoral and popliteal veins otherwise the common femoral and proximal/mid superficial femoral veins are patent. Normocytic anemia. Present on admission. Ongoing - H&H 11.3/33.2 - Most likely secondary to recent ground-level fall - Patient Uatsdin. No blood products - H&H slightly improved at 7.7 Chronic constipation. Present on admission. Ongoing - MiraLAX -- Encouraged patient to take MiraLAX and senna, she is still declining... Patient Status: Patient was admitted under inpatient status with expected length of stay greater than two midnights due to severity of presenting symptoms , risk of adverse event, and complexity of treatment plan. Pain Evaluation: Adequate Pain Control GI Prophylaxis: H2 carrillo (yuko) VTE Prophylaxis: Sub-Q Enoxaparin, Theraputic Anticoag with Warfarin (patient will be bridged back to her chronic warfarin dosing per pharmacy management with hospitalist service.), SCDs, ANNY Goss VTE Mechanical Devices: Intermittant Pneumatic CD Resuscitation Status: CPR: Attempt Resuscitation Time spent 25 min Stella Pineda DO Nov 14, 2016 09:56
[2016-11-14 15:32] VITALS: BP 121/76; PULSE 104; RESP 18; O2SAT 98
--- NOTE | 2016-11-14 15:48 | NUR ---
Social Work: Continued Discharge Planning D: EMR reviewed. Pt is on day 3 of hospitalization. PT recommends pt discharge to SNF on 11/13. MD placed orders for SW consult to discuss discharge planning. SW met with pt to discuss SNF. Pt is agreeable to going to SNF. SW provided pt with choice list. Pt chose [facility]. SW made referral, faxed [facility]SR, gave access, and placed ppw in chart. SW to follow-up with [facility] regarding pt's acceptance at discharge. SW will continue to follow. A: Pt for whom a SNF has been deemed medically necessary. P: SW to follow-up with [facility] to determine if pt is accepted. SW to confirm acceptance with pt and family. Pt likely to discharge to SNF. Pt and family agreeable to discharge plan. SW will continue to follow. VINITA Miller
--- NOTE | 2016-11-14 15:51 | NUR ---
PASSR faxed, access given to [facility]
[2016-11-14] MEDS: 0.9% Sodium Chloride 1,000 ML IV SCH (16:00)
[2016-11-14] MEDS: Calcitonin 200 IU 3.7 mL Nasal Spray NASAL SCH (17:06)
[2016-11-14 20:50] VITALS: BP 104/64; PULSE 96; RESP 16; O2SAT 98
[2016-11-15] MEDS: Sodium Chloride LOK Flush 10 mL Syringe IV SCH ×3 (00:30→17:53)
--- NOTE | 2016-11-15 05:15 | NUR ---
ortho island dressing with minimal drainage. Changed at 2200. Patient declined pain med overnight - states she only hurts when she turns and then the pain decreases at rest. No BM overnight, denies nausea. Stable, care ongoing.
[2016-11-15 05:47] LABS: INR 1.52 ratio
[2016-11-15 06:00] VITALS: BP 110/64; PULSE 94; RESP 16; O2SAT 98
--- NOTE | 2016-11-15 07:13 | PCM.PHAPRO ---
Progress 2-Angel 3-Angel 4-Angel 1.07 1.06 1.52 -0.3 -0.01 0.46 5 OT 5 mg 3 Bennett Stephenson Pharm.D Nov 15, 2016 07:13
--- NOTE | 2016-11-15 07:23 | PCM.PNORTH ---
Subjective Date of Service: Nov 15, 2016 Visit Information: Reason for Visit Left Hip Fx, Thigh Hematoma, Anticoagulated Surgery/Surgery Date Post-Op Day # Date of Admission: November 11, 2016 at 21:51 Hospital Day # Subjective On patient sleeping on left side this morning. Easily awakened with no complaints of pain. Patient expresses that she is more comfortable with transfers after yesterday's experience and is happy about this. Patient also expresses that she is having difficulty with BMs and this is her usual situation. She has a very specific routine that she uses at home and it is simply difficult to duplicate this in the hospital under the circumstances. Patient ideally needs a BSC that she could transfer onto laterally which does not seem to be available. I have discussed with the patient that orthopedics we will likely clear her for discharge today to skilled facility when hospitalist service feels she is medically appropriate to do so. Postop General: No Shortness of Breath, No Chest Pain Pain Management: PO Objective Exam Objective Alert and oriented 3 and pleasant. Postoperative dressings are changed again this morning and wounds are in good condition with scant serous drainage proximal wounds Bilateral ANNY hose and bilateral SCDs are in place. Torres is in place and working Transferred to her wheelchair yesterday on 11/14/2016 successfully with physical therapy. Patient is left sitting up in bed today at this time. Vital Signs and I/O Vital Sign - Last Date Time Temp Pulse Resp B/P Pulse Ox O2 Delivery O2 Flow Rate FiO2 11/15/16 06:00 36.8 94 16 110/64 98 Room Air 11/12/16 21:21 2.50 Intake and Output 11/14/16 11/14/16 11/15/16 Cumulative From/Thru 15:00 23:00 07:00 11/11/16 16:08 - 11/15/16 06:08 Intake Total 800 ml 300 ml 5317 ml Output Total 1200 ml 700 ml 4510 ml Balance -400 ml -400 ml 807 ml Intake Oral 800 ml 300 ml 2190 ml IV Total 3127 ml Output Urine Total 1200 ml 700 ml 4300 ml Estimated Blood Loss 210 ml # Bowel Movements 2 1 3 Lab & Micro Results Laboratory Tests Test 11/14/16 07:40 11/15/16 04:40 Hemoglobin 7.6g/dL (12.0-15.6) Hematocrit 23.4% (35.0-46.0) Sodium Level 140mEq/L (134-144) Potassium Level 4.0mEq/L (3.5-5.2) Chloride Level 106mEq/L (97-108) Carbon Dioxide Level 20mmol/L (18-29) Blood Urea Nitrogen 13mg/dL (8-27) Creatinine 0.32mg/dL (0.57-1.00) Estimat Glomerular Filtration Rate 293mL/min (>59) Glucose Level 92mg/dL (60-99) Calcium Level 8.3mg/dL (8.5-10.1) Prothrombin Time 16.4sec (8.1-12.5) Prothromb Time International Ratio 1.52ratio Result Diagram: 11/14/16 0740 11/14/16 0740 General Appearance: Alert, Oriented X3, Cooperative, No Acute Distress Extremities: Thigh & Calf Soft/Nontender Activity: Activity per PT, Ambulate with PT (weightbearing as tolerated on the left lower extremity for transfers. Physical therapy please work on bed mobility, positioning and transferring with patient's primary in-home wheelchair ) Catheters: Urethral 2 Way Torres (Torres in place on postop day #1. Discontinue Torres on postoperative day #1 after first PT session.) Assessment & Plan Plan Postop day #3 from left hip long IM nail placement on 11/12/[address] Jere Wells. Hemoglobin 7.6, hematocrit 23.4. Patient is on iron supplementation. Patient is Gnosticism and will not be accepting blood products. Weightbearing as tolerated on the left lower extremity for transfers only. Continue formal physical therapy for bed mobility, transfers and safety. Patient has successfully performed transfer to her wheelchair from her hospital bed and is more at ease with this now. Continue occupational therapy as needed for bed mobility, transfers and safety. Continue by mouth pain medications as needed. Continue bridging to chronic warfarin per pharmacy dosing and monitoring with hospitalist managing.. Postoperative dressings are changed again this morning and there is scant and none serous drainage and wounds are in good condition. Patient voices concern today regarding inability to have a bowel movement. States her normal routine is MiraLAX coffee juice and water in the morning. She is receiving these things but is unable to perform her normal physical activity which completes the program for her. Nursing will look for a bedside commode with removable arms which may facilitate patient better. Patient straight cath's for urination at baseline. Torres catheter is in place and will remain so to avoid numerous straight cathing and to monitor output. Hospitalist service will manage as they feel appropriate. Nursing: Patient may need special positioning secondary to spina bifida and thecal sac at posterior left hip which will require reduced compression. Patient will advise regarding positioning. Follow-up in 2 weeks at [facility] orthopedic clinic with Dr. Jere Wells for staple removal, Steri-Strip placement and wound check with left two- view femur x-rays on arrival. Follow-up in 6 weeks at [facility] orthopedic clinic with Dr. Jere Wells with left two-view femur x-rays on arrival. Orthopedic [facility] service for their help in the medical management of this patient. From orthopedic standpoint patient is mechanically stable for discharge to custodial facility by hospitalist service when patient is determined to be medically stable to do so. Orthopedics will continue to follow while in-house per Dr. Jere Wells. Anticipate discharge to custodial facility by hospitalist service when patient is medically stable to do so. VTE Prophylaxis: Sub-Q Enoxaparin, Theraputic Anticoag with Warfarin (patient will be bridged back to her chronic warfarin dosing per pharmacy management with hospitalist service.), SCDs, ANNY Goss Resuscitation Status: CPR: Attempt Resuscitation Janusz Juarez PA-C Nov 15, 2016 07:23
[2016-11-15 08:08] VITALS: BP 132/78; PULSE 80; RESP 16; O2SAT 100
[2016-11-15] MEDS: Senna-Docusate 8.6-50 mg Tablet PO SCH ×2 (08:21→20:30)
[2016-11-15] MEDS: Calcitonin 200 IU 3.7 mL Nasal Spray NASAL SCH (08:22)
[2016-11-15] MEDS: Polyethylene Glycol (PEG) 17 Gm Powder PO SCH (10:22)
[2016-11-15] MEDS: 0.9% Sodium Chloride 1,000 ML IV SCH (12:00)
[2016-11-15] MEDS ORDERED: Iron Sucrose Inj 200 MG in 0.9% Sodium Chloride 100 ML IV ONE (13:10)
[2016-11-15 15:01] VITALS: BP 118/74; PULSE 98; RESP 17; O2SAT 98
--- NOTE | 2016-11-15 15:38 | NUR ---
Social Work: Continued Discharge Planning D: EMR reviewed. Pt is on day 4 of hospitalization. SW received T/C from pt's spouse requesting SW to cancel referral to [facility] and make referral to [facility]. SW will make referral to SNF and update note. A: Pt for whom a SNF has been deemed medically necessary. P: SW to make referral to [facility]. SW will follow-up with family regarding referral. VINITA Miller
--- NOTE | 2016-11-15 18:37 | NUR ---
GI/ Ambulation/ Left leg Pt. has not had a BM on shift. Pt. worked with PT this afternoon and was able to sit in chair for about 1hr max assist, see PT for notes. Pts. left leg dressing are C/D/I. Will continue to monitor.
--- NOTE | 2016-11-15 18:52 | DRSVH ---
PROCEDURE: US EXTREMITY SONOGRAM LIMITED ([id number]) INDICATIONS: check hematoma on left hip TECHNIQUE: Real-time scanning was performed of the left thigh, with image documentation. COMPARISON: [facility], CR, XR FEMUR 2VW RT, 11/12/2016, 17:13. FINDINGS: A hematoma is identified at the posterior left inferior aspect of the wound dressing, with a bilobed configuration one of which measures 0.8 x 4.4 cm and the second lobe measures 2.2 x 2.6 x 4.1 cm located approximately 4 cm deep to the posterolateral aspect of the upper thigh. IMPRESSION: A bilobed hematoma is present as discussed, measuring up to 2.2 x 2.6 x 4.1 cm at the po sterior lateral aspect of the upper thigh, on the left, 4 cm deep to the skin surface. Dictated by: Emmanuel Bojorquez M.D. on 11/15/2016 at 18:49 Approved by: Emmanuel Bojorquez M.D. on 11/15/2016 at 18:51
[2016-11-15 21:00] VITALS: BP 131/81; PULSE 94; RESP 16; O2SAT 96
--- NOTE | 2016-11-16 00:08 | PCM.PNMED ---
Subjective Date of Service Nov 15, 2016 Subjective Patient is seen and examined in her room. Today she is sitting on her chair by herself no family is around. Discussed her anemia, her believes is Jehov[employer]'s [employer]es, need for vitamin supplementation. She is agreeable to receiving iron infusion. She states that she still has not had a decent bowel movement, but once again says she will hold off on asking for medication. Exam Vital Signs Vital Sign - Last Date Time Temp Pulse Resp B/P Pulse Ox O2 Delivery O2 Flow Rate FiO2 11/15/16 08:08 Supplement Oxygen 11/15/16 08:08 36.7 80 16 132/78 100 11/12/16 21:21 2.50 Intake and Output 11/14/16 11/14/16 11/15/16 Cumulative From/Thru 15:00 23:00 07:00 11/11/16 16:08 - 11/15/16 06:08 Intake Total 800 ml 300 ml 5317 ml Output Total 1200 ml 700 ml 4510 ml Balance -400 ml -400 ml 807 ml Intake Oral 800 ml 300 ml 2190 ml IV Total 3127 ml Output Urine Total 1200 ml 700 ml 4300 ml Estimated Blood Loss 210 ml # Bowel Movements 2 1 3 Exam General: Awake and alert, sitting up in chair today HEENT: Normocephalic, atraumatic. External ears without defect. Neck: Supple with full range of motion. No jugular venous distension. Cardiovascular: Regular rate with regular rhythm, no murmurs, rubs, or gallops appreciated Pulmonary: Clear to auscultation bilaterally with no crackles, wheezes, or rhonchi. Normal respiratory effort with no use of accessory muscles. Good air movement Abdomen: Bowel tones present. Soft, nontender. Back: Spina bifida. Spinal midline. Lower back deformities, patient attributes this to collections of spinal fluid Skin: She has an ecchymotic spot on the left hip where she initially fell,, non- tender to palpation, small hematoma is palpated. Extremities: Significantly distal lower extremities, no sensation of extremities distal pelvis. Good Pedal pulses bilaterally. No pain to palpation Neurological: No focal deficits Psychiatric: Normal mood and affect. Alert and oriented to person, place, and time. IVs and Medications IV Fluids None Medications Reviewed: Medications were reviewed in detail Lab and Diagnostics Result Diagram: 11/15/16 0440 11/14/16 0740 X-Rays, CTs and MRIs . X-RAY PELVIS WITH BILATERAL HIPS, 3 VIEWS IMPRESSION: Proximal femoral fracture thought to be subtrochanteric but involving the lesser trochanter. Dictated by: Uri Haji M.D. on 11/11/2016 at 20:31 X-RAY LEFT FEMUR, TWO VIEWS IMPRESSION: Proximal left femoral diaphysis fracture on the margin of images. No distal femoral fracture. Bones are osteoporotic. Dictated by: Uri Haji M.D. 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 Acute disease is not seen in the chest. Bones are osteoporotic. Moderate rotoscoliosis. Dictated by: Uri Haji M.D. on 11/11/2016 at 20:40 CT ANGIO CHEST PULMONARY EMBOLISM IMPRESSION: No evidence for pulmonary embolus. Probable large hiatal hernia. I cannot track the distal esophagus to look for the location of the esophageal gastric junction. A probable hiatal hernia rather than ruptured hemidiaphragm appears to be chronic and involves bowel loops which are nonobstructive. Dictated by: Uri Haji M.D. 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 Acute fracture of the left femur the proximal diaphysis and involving the inferior aspect of the lesser trochanter with displacement of the major distal fragment posteriorly the thickness of the shaft of the femur. No fracture of the pelvic ring. Dictated by: Uri Haji M.D. on 11/11/2016 at 21:06 Assessment & Plan Mrs. Magana is a 71-year-old female with past medical history of spina bifida , multiple PEs and DVTs admitted for a left hip fracture Acute anemia secondary to blood loss that is inherent and inherent risk of orthopedic surgery: Hemoglobin 7.2 on 11/15 -- Patient is a Religion, no blood products are expected -- Venofer 200 mg one-time infusion is given via IV: Patient is agreeable -- I have discussed the case with Dr. Pendleton who believes she can benefit from anaresp based on the evidence that both the iron infusion and anaresp are recommended for Religion is needing blood transfusions. Hematology/ Oncology is consulted, and they will see the patient Left hip fracture s/p left femur closed reduction intramedullary nail fixation - Imaging confirmed - Orthopedics consult, awaiting recommendations - Dr. Nichole is the surgeon - Religion, no blood products excepted --Notified surgeon of her ACETYLENE TORCH BURNER shunt and the fact that patient had thrombosis in spite of coumadin in the past. -enoxaparin and increased to therapeutic dose, continue coumadin per pharmacy. Will monitor the ecchymotic spot as well as H&H. --Ortho: "Follow-up in 2 weeks at [facility] orthopedic clinic with Dr. Jere roy for staple removal, Steri-Strip placement and wound check with left two-view femur x-rays on arrival. Follow-up in 6 weeks at [facility] orthopedic clinic with Dr. Jere roy with left two-view femur x-rays on arrival. Orthopedic [facility] hospital service for their help in the medical management of this patient. [facility] by hospitalist service when patient is medically stable to do so. VTE Prophylaxis: Sub-Q Heparin (Unfractionated) (bridging to chronic warfarin made be accomplished with heparin or other pertinent pharmacy and hospitalist service.), Theraputic Anticoag with Warfarin (patient will be bridged back to her chronic warfarin dosing per pharmacy management with hospitalist service.), SCDs, ANNY Goss" -- Continue PT OT -- Discontinued dilaudid as she is not taking it -- Ultrasound of the surgical area is ordered to rule out hematoma Subtherapeutic INR: -- 1.52 today -- Continue enoxaparin therapeutic dose and Coumadin per pharmacy -- Hematology is consulted Chronic osteoporosis: -- calcitonin nasal spray and vit D home meds Chronic neurogenic bladder: -- She still has the Torres from the OR -- Discontinue Torres 6/5 a.m. -- Straight cath on a daily basis as this is what she does at home Right hip pain: -- X-rays ordered, negative for fracture in right femur D-dimer, present on admission. - 1.73 in ED - CT angiogram negative - Lower extremity ultrasound showed Suspect chronic DVT involving the distal left superficial femoral and popliteal veins otherwise the common femoral and proximal/mid superficial femoral veins are patent. Chronic constipation. Present on admission. Ongoing - MiraLAX -- Encouraged patient to take MiraLAX and senna, she is still declining... Patient Status: Patient was admitted under inpatient status with expected length of stay greater than two midnights due to severity of presenting symptoms , risk of adverse event, and complexity of treatment plan. Disposition: Patient is approved to go to [facility] family is interested in going to [place]. Case management providing him with options. This is still likely 3- 4 days away. Patent for hematology to see the patient and provide recommendations to help with that her anemia Pain Evaluation: Adequate Pain Control GI Prophylaxis: H2 carrillo (yuko) VTE Prophylaxis: Sub-Q Enoxaparin, Theraputic Anticoag with Warfarin (patient will be bridged back to her chronic warfarin dosing per pharmacy management with hospitalist service.), SCDs, ANNY Goss VTE Mechanical Devices: Intermittant Pneumatic CD, Anti-Embolic stockings Resuscitation Status: CPR: Attempt Resuscitation Time spent 25 minutes Stella Pineda DO Nov 15, 2016 13:14
[2016-11-16] MEDS: Sodium Chloride LOK Flush 10 mL Syringe IV SCH ×4 (00:30→20:29)
--- NOTE | 2016-11-16 01:28 | HP ---
[address] [address] HISTORY AND PHYSICAL PATIENT: DIANNE ESTRADA : 1945 MR#: [id number] ADMIT: 11/11/2016 JOB ID: [id number] REFERRING PROVIDER: Stella Pineda DO REASON FOR REFERRAL: Management of anemia in a 71-year-old, PENTECOSTALISM, who has had a recent drop in hemoglobin and hematocrit related to a leg hematoma associated with recent fall, left hip fracture and fixation; the patient is wheelchair-bound due to spina bifida and on chronic anticoagulation due to multiple reportecd prior thromboembolic events. DIAGNOSES: 1. Recent development of significant anemia in a PENTECOSTALISM, suspect related to a left thigh hematoma and other causes. 2. Chronic anticoagulation for a hypercoagulable state mainly related to immobilization due to spina bifida and multiple prior thromboses and thromboembolic events. 3. Recent fall with left subtrochanteric femoral shaft fracture with left femur closed reduction, intramedullary nail fixation on November 12, 2016, Dr. Wells. 4. The patient has a failed a Khushi filter in place. HISTORY OF PRESENT ILLNESS: The recent history is that the patient usually transfers herself from a wheelchair to commode. On November 06, 2016, she had a ground level fall. She struck her left upper thigh and twisted her leg externally according to the admission note and developed a large hematoma on her left thigh. She had increasing pain and swelling, and was admitted on November 11 with a proximal femoral fracture. At that time, the hemoglobin was 11.3, hematocrit 33.2. Although the patient was short of breath, a CT angio showed no evidence of pulmonary embolism. At that time, she was on warfarin. This was held. INR was 2.52, and 10 mg of vitamin K was administered. She went to surgery as described above on November 12. Estimated blood loss was 10 cc; however, in the ensuing days, she became progressively more anemic, hematocrit dropping from 30.8 on November 12, to 22.7 on November 13. Subsequently stabilized this morning at 21.9, with a hemoglobin of 7.2. As of today, the orthopedic rounds described no significant blood loss and did not describe the hematoma on the left as getting any larger. She was started on enoxaparin yesterday afternoon. The history of her thrombotic episodes is from the H and P and from the patient. The H and P states that she has had multiple PEs and DVTs, is on warfarin and has had a failed [place] filter. The patient herself states that she has spina bifida, but up until the mid she was still able to walk and she had one which exacerbated her symptoms subsequently. Her daughter is now 47 years old. She developed worsening weakness, loss of sensation and loss of muscle strength in both lower extremities, the left worse than the right. She thinks that she had her 1st thrombosis in 2004 and that she has had multiple pulmonary emboli and DVTs, and is on lifelong warfarin because of this. She thinks she has not had any DVTs or PE since being on warfarin; I have not yet reviewed any confirmatory records. The patient [facility] her [facility] years ago from [place] to be closer to her daughter. PAST MEDICAL HISTORY: Includes spina bifida. She has had multiple operations for this, and she was able to walk up until mid . Now wheelchair bound. She does most of her transfers and self-care by herself, although she lives with her who is very helpful. She has a Khushi filter which has apparently not prevented emboli. She is AB0. She has never had any other surgeries. No hysterectomy, no appendectomy, no cholecystectomy, no cardiac disease, no lung disease that she is aware of. HABITS: She is a never "smoker," tried a few cigarettes in high school, and drinks occasionally. ALLERGIES: She is allergic to SULFA. SOCIAL HISTORY: She lives with her to whom she has been for 48 years, and does much of her own self-care. FAMILY HISTORY: She has one daughter who is healthy. She has a brother and sister who are well. Mother at 80. Father at 87, causes not known. REVIEW OF SYSTEMS: General: She feels that she is improving. She does not feel dyspneic. She has no headaches, palpitations or other signs of anemia beyond being tired at this time. She states she feels reasonably comfortable, and understands that there may be a situation where a transfusion would be a life-saving intervention; she would still not accept the transfusion, is my understanding. She has had no weight loss. No febrile illnesses. RESP:She did have some dyspnea when she was admitted on November 11, but no cough or hemoptysis. No headaches, visual changes, sore or dry mouth and throat. Cardiac: No palpitations, exertional chest pain or syncope. GI: Appetite is fair. Bowel movements are more difficult hospital as discussed by the H and P. The patient has a routine at home which is hard to reproduce in the hospital. Therefore, the constipation has been more of a problem, exacerbated by pain meds, but she states she has taken no pain medications today. : No dysuria or hematuria. Musculoskeletal: She is significantly impaired due to spina bifida and its complications. She describes near complete lack of sensation in both lower extremities up to the hip and with major loss of motor function in both legs with some motor strength preserved more on the right than the left. MEDICATIONS IN THE HOSPITAL: 1. Enoxaparin 60 mg q.12 h. 2. Hydromorphone 1 mg q.4 h. p.r.n. pain. 3. Calcitonin salmon nasal daily. 4. Cholecalciferol 1000 units b.i.d. 5. Acetaminophen. 6. Ferrous sulfate 325 mg b.i.d. 7. Senna, one tablet b.i.d. 8. Docusate 100 mg b.i.d. 9. Acetaminophen/hydrocodone 5/325 q.4 h. p.r.n. pain. 10. Ondansetron as needed. 11. Diphenhydramine 25 mg p.o. q.4 h. p.r.n. itching. 12. Magnesium hydroxide 30 mL p.r.n. constipation. 13. Dulcolax rectal suppository 10 mg p.r.n. constipation. 14. Polyethylene glycol 17 g p.r.n. constipation. 15. Fleet enema p.r.n. 16. Pepcid 10 mg b.i.d. 17. Aluminum hydroxide simethicone as needed. PHYSICAL EXAMINATION: Vital signs show a temperature of 37.2, pulse 94, respiratory rate 16, blood pressure 131/81, pulse ox 96% on room air. In general, she is sitting up in bed, and she looks reasonably comfortable, is talkative. She has a foreshortened thorax with a scar on her lower back related to spina bifida, and short lower extremities, both of which were fitted with antithrombosis devices. Head and neck: Normal skin and hair. Pupils equal, round, reactive. She is farsighted. She has glasses. Oral and oropharyngeal mucosa are pink and moist without thrush or lesions. No petechiae. Teeth in fair repair. Neck is supple without thyromegaly. Lung fitzpatrick are clear to auscultation and percussion. Cardiac rhythm is regular, not bounding. Pulse is 94, however, borderline high Abdomen: Soft and nontender without masses or organomegaly. Extremities without effusions or tenderness. IMAGING: The patient had a lower extremity sonogram showing a bilobed hematoma present, measuring 2.2 x 2.6 x 4.1 cm at the posterolateral aspect of the upper thigh, 4 cm deep to the surface. Femur x-ray on November 12 showed no acute bony injuries to the right femur. 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 LABORATORY VALUES: The hemoglobin dropped from 11.3 on November 11, to 10.7 on November 12, to 7.4 on November 13, and has remained relatively stable since then. It is 7.2 today. Correspondingly, the hematocrit dropped from 32.2 to the current value of 21.9. The MCV is 89.1, platelet count is 184, and white count 5.0. INR 1.52. D-dimer 1.73 on November 11. The BUN and creatinine are 13 and 0.32 on November 14. Electrolytes normal. Glucose 92. Calcium 8.3. The patient is said to also have osteopenia or osteoporosis. Albumin 3.2. ASSESSMENT AND RECOMMENDATIONS: Anemia in a PENTECOSTALISM. Numerous studies have shown that on average they have about the comparable survival to the general hospitalized population. However, there are those few cases where the anemia is so severe that without transfusion the patient would not survive. In this patient's case , I understand that she would still not take transfusion in that event. Fortunately, she is stable and is tolerating this level of anemia well. . The standard approach to anemia in a PENTECOSTALISM if severe enough would be the use of EPO at 200 units/kg three times a week and the administration of parenteral iron, particularly if the ferritin is less than 200. We do not have that value yet. In addition, B12 and folic acid can be added. I have told the patient that we have limited tools, that we can approach her case in this fashion but that there are no additional tools available to us beyond these of erythropoietin, B12, folate and iron infusion. I agree with Dr. Pineda that there is a possible increased risk of thrombosis with the use of EPO, that there may be a direct effect on thrombosis as well as the increase in thrombosis when the hemoglobin goes above 12, and therefore, given her thrombophilia, it would be better to avoid EPO if possible. In fact, after seeing the patient today and it seems that she appears comfortable, I think we can avoid EPO. If she were acutely ill, however, the risk of thrombosis in my opinion would be low enough to warrant going forward with EPO, but in this case, we do not need to do that; parenteral iron can be administered at 200 mg. I would limit that dose to the amount that would be present in 2-3 units of blood which would be 500-750 mg total, estimating this from what blood loss she may have experienced. The hematoma on the left side does not appear large enough to explain her total loss of blood, and therefore, I would continue to check her stool for occult blood. Regarding her thrombophilia, this is undoubtedly related to her immobilized state and at least with the information available, warfarin appears to be adequate management for this condition long-term. I have seen no evidence that she is a warfarin failure yet. At least one study found that low-dose EPO that is less than 600 units/kg per week of EPO beta did not reduce mortality or shorten the duration of severe anemia in Geoff et al., blood transfusion 2015, April 15:1-10. Giovanny and Manolo in transfusion 2014, 54:3026, outlined a protocol for managing low hemoglobin in PENTECOSTALISM patients. They recommended initiating the protocol for hemoglobin less than 7, which this patient has not reached, and that includes EPO 40,000 units daily until hemoglobin is over 7, then change to 40,000 units weekly combined with iron 100 mg iron sucrose intravenously for 10 days, and then consider conversion to oral iron, vitamin C 500 mg t.i.d., folate 1 mg daily, and B12 IV oral supplementation. Since no randomized controlled study can confirm this, these are basically recommendations from those who have managed intensive care patients. Regarding her iron deficiency, inflammation induces up regulation of hepcidin thus reducing iron availability by decreasing absorption of iron and given the iron efflux ferroportin and decreased release of iron from macrophages and the reticuloendothelial system. Addition of IV iron simply overdrives that system. Any other source of iron loss, including GI bleeding, are already being checked; the degree of the drop in hemoglobin and hematocrit in this patient seems beyond what would have been expected either from the surgery or from the size of the hematoma. Finally, it would be helpful to check an iron total iron-binding capacity, ferritin level now as well as a B12 and folate level to see where she stands, and as well an EPO level. It may well be that her endogenous EPO level is quite high already. I appreciate being asked to participate in this patient's care, and will follow up with Dr. Pineda. JARVIS
--- NOTE | 2016-11-16 04:04 | NUR ---
GI/Pain pt declined her evening stool softeners but then had a large loose BM this shift. she reported that she was having abdominal discomfort but it was improved after the BM. she denied any pain this shift. she has been offered q2h repositioning for comfort. Dr. Pendleton came and spoke with pt this shift. pt reports feeling encouraged and relieved after her discussion with him. care continues.
[2016-11-16 05:57] LABS: INR 2.28 ratio
--- NOTE | 2016-11-16 06:27 | PCM.PNORTH ---
Subjective Date of Service: Nov 16, 2016 Visit Information: Reason for Visit Left Hip Fx, Thigh Hematoma, Anticoagulated Surgery/Surgery Date Post-Op Day # Date of Admission: November 11, 2016 at 21:51 Hospital Day # Subjective Palpation awake and alert this morning and lying on her left side. Discussed her blood issues this morning and patient is aware that she will have a longer course of recovering her blood chemistry secondary to the inability to receive blood products. Patient also discusses that her hospitalist mentioned that she has likely a hematoma at the left side and the hospitalist has concern for excessive iron as this blood is reabsorbed. Discussed likely discharge when patient is medically stable to a shelter facility and patient is agreeable to this. Patient has been up in a chair at bedside and is practicing her transfers daily. Patient has also finally had a bowel movement postop. Postop General: No Complaints, No Shortness of Breath, No Chest Pain Pain Management: PO Objective Exam Objective Alert and oriented 3 and pleasant. Anterior proximal thigh wound continues light serous drainage. Wound is observed this morning and appears to be in good condition. Patient positions herself on left hip and I believe this reduces free space in the tissues and is generally a positive thing. Patient is well-positioned in bed. Evidence of ecchymosis and swelling are still present at the left upper leg. Likely hematoma and/or seroma present. Thigh is generally soft and nontender Torres catheter remains in place. Continued participation with physical therapy in the form of transfers to wheelchair or bedside chair. No acquisition of BSC with removable arms to facilitate transfers yet. Vital Signs and I/O Vital Sign - Last Date Time Temp Pulse Resp B/P Pulse Ox O2 Delivery O2 Flow Rate FiO2 11/15/16 21:00 37.2 94 16 131/81 96 Room Air 11/12/16 21:21 2.50 Intake and Output 11/15/16 11/15/16 11/16/16 Cumulative From/Thru 15:00 23:00 07:00 11/11/16 16:08 - 11/15/16 18:10 Intake Total 600 ml 5917 ml Output Total 1400 ml 5910 ml Balance -800 ml 7 ml Intake Oral 600 ml 2790 ml IV Total 3127 ml Output Urine Total 1400 ml 5700 ml Estimated Blood Loss 210 ml # Bowel Movements 0 3 Lab & Micro Results Laboratory Tests Test 11/16/16 05:03 Result Diagram: 11/15/16 0440 11/14/16 0740 General Appearance: Alert, Oriented X3, Cooperative, No Acute Distress Activity: Activity per PT, Ambulate with PT (weightbearing as tolerated on the left lower extremity for transfers. Physical therapy please work on bed mobility, positioning and transferring with patient's primary in-home wheelchair ) Catheters: Urethral 2 Way Torres (Torres in place on postop day #1. Discontinue Torres on postoperative day #1 after first PT session.) Assessment & Plan Impression Patient is a 71-year-old female whom has a history of spina bifida without ambulation and has recently undergone a long femoral IM nail placement on 2016 secondary to a femur fracture. Patient suffers from low H&H and is [employer] '[employer] and is unable to except blood products. She also has a hematoma and likely seroma at the left hip with very scant drainage from her distal posterior wound. Patient is on anticoagulation management with pharmacy and hospitalist service. Patient is also under active management for H&H. Problems: Plan Postop day #4 from left hip long IM nail placement on 11/12/[address] Jere Wells. Hemoglobin 7.2, hematocrit 21.9. Patient is on iron supplementation. Patient is Jewish and will not be accepting blood products. Hematology has been counseled by hospitalist service regarding the use of other medications which may be helpful in this issue. Weightbearing as tolerated on the left lower extremity for transfers only. Continue formal physical therapy for bed mobility, transfers and safety. Patient recess Torres and transfers to wheelchair a bedside chair with physical therapy. Continue occupational therapy as needed for bed mobility, transfers and safety. Continue by mouth pain medications as needed. Continue bridging to chronic warfarin per pharmacy dosing and monitoring with hospitalist managing. Anterior proximal thigh wound is producing scant serous drainage. This may be as a result of left hip down positioning. There is general ecchymosis about the left hip which appears to be waning. The left thigh and calf are soft and nontender. Laying on the Left hip will reduce free space in the tissues and likely limit hematoma or seroma formation. This may however push some serous fluid out the proximal anterior thigh wound. Wounds appear to be in good condition with no sign of infection at this time. Patient has been successful in having a bowel movement yesterday. Nursing will look for a bedside commode with removable arms which may facilitate patient positioning. Patient straight cath's for urination at baseline. Torres catheter is in place and will remain so at hospitalist discretion avoid numerous straight cathing and to monitor output. Hospitalist service will manage as they feel appropriate. Nursing: Patient may need special positioning secondary to spina bifida and thecal sac at posterior left hip which will require reduced compression. Patient will advise regarding positioning. Nursing please change dressings daily and when necessary when soiled. Follow-up in 2 weeks at [facility] orthopedic clinic with Dr. Jere Wells for staple removal, Steri-Strip placement and wound check with left two- view femur x-rays on arrival. Follow-up in 6 weeks at [facility] orthopedic clinic with Dr. Jere Wells with left two-view femur x-rays on arrival. [facility] service for their help in the medical management of this patient. From orthopedic standpoint patient is mechanically stable for discharge to shelter facility by hospitalist service when patient is determined to be medically stable to do so. Orthopedics will continue to follow while in-house per Dr. Jere Wells. Anticipate discharge to shelter facility by hospitalist service when patient is medically stable to do so. VTE Prophylaxis: Sub-Q Enoxaparin, Theraputic Anticoag with Warfarin (patient will be bridged back to her chronic warfarin dosing per pharmacy management with hospitalist service.), SCDs, ANNY Goss Resuscitation Status: CPR: Attempt Resuscitation Janusz Juarez PA-C Nov 16, 2016 06:27
[2016-11-16 06:38] VITALS: BP 104/62; PULSE 78; O2SAT 97
[2016-11-16 07:31] LABS: BASOPHILS % (AUTO) 0.6 % (0-3); MONOCYTES % (AUTO) 9.1 % (4-12); Mean Corpuscular Hemoglobin 29.1 pg (27.0-35.0); Mean Corpuscular Volume 90.3 fL (81-100); Platelet Count 255 bil/L (150-400)
[2016-11-16] MEDS: 0.9% Sodium Chloride 1,000 ML IV SCH ×2 (08:00→20:29)
[2016-11-16 08:08] LABS: Unsaturated Iron Binding 58.6 ug/dL
[2016-11-16] MEDS: Polyethylene Glycol (PEG) 17 Gm Powder PO SCH (08:30)
[2016-11-16] MEDS: Senna-Docusate 8.6-50 mg Tablet PO SCH ×2 (08:30→20:28)
[2016-11-16] MEDS: Calcitonin 200 IU 3.7 mL Nasal Spray NASAL SCH (08:37)
[2016-11-16 08:41] VITALS: BP 109/74; PULSE 91; RESP 20; O2SAT 94
--- NOTE | 2016-11-16 09:48 | NUR ---
Faxed referral to [facility] per MEDICAL AFFAIRS DIRECTOR this is patient preference. Addendum: 11/16/16 at 1128 by MARTHA VELASQUEZ CM Lashanda mccray and they can accept patient pending height and weight and reason for oncology consult. Updated MEDICAL AFFAIRS DIRECTOR
[2016-11-16] MEDS ORDERED: SODIUM CHLORIDE 0.9% IV ONE ×2 (10:50→11:05)
[2016-11-16] MEDS ORDERED: IRON SUCROSE IV ONE (10:50)
[2016-11-16] MEDS ORDERED: Iron Sucrose Inj 200 MG in 0.9% Sodium Chloride 100 ML IV ONE (10:55)
[2016-11-16] MEDS ORDERED: [UNRECOGNIZED DRUG - OTHER] IV ONE (11:05)
[2016-11-16 13:08] VITALS: BP 118/79; PULSE 93; RESP 18; O2SAT 94
--- NOTE | 2016-11-16 13:50 | PCM.PHAPRO ---
Progress WARFARIN DOSING PER PHARMACY Date 1-Angel 2-Angel 3-Angel 4-Angel 5-Angel INR 1.37 1.07 1.06 1.52 2.28 INR change -0.3 -0.01 0.46 0.76 Warf Dose 0 - PT IN SURGERY 5 OT 5 mg 3 2 With rapid increase in INR, will give one dose of warfarin 2mg tonight Pt currently on enoxaparin 60mg SQ BID for bridging. Will most likely be able to d/c tomorrow if INR continues to be therapeutic Nyasia Askew PharmD Nov 16, 2016 13:50
[2016-11-16 14:35] LABS: Unsaturated Iron Binding 161.3 ug/dL
--- NOTE | 2016-11-16 14:40 | PCM.PNMED ---
Subjective Date of Service Nov 16, 2016 Subjective Pain controlled. Hemoglobin is stable at 7.8. Hematoma stable. Received IV iron yesterday and today. Exam Vital Signs Vital Sign - Last Date Time Temp Pulse Resp B/P Pulse Ox O2 Delivery O2 Flow Rate FiO2 11/16/16 13:08 36.7 93 18 118/79 94 Room Air 11/12/16 21:21 2.50 Intake and Output 11/15/16 11/15/16 11/16/16 Cumulative From/Thru 15:00 23:00 07:00 11/11/16 16:08 - 11/16/16 06:38 Intake Total 600 ml 450 ml 6367 ml Output Total 1400 ml 750 ml 6660 ml Balance -800 ml -300 ml -293 ml Intake Oral 600 ml 450 ml 3240 ml IV Total 3127 ml Output Urine Total 1400 ml 750 ml 6450 ml Estimated Blood Loss 210 ml # Bowel Movements 0 2 5 Exam General: Awake and alert, HEENT: Normocephalic, atraumatic. External ears without defect. Neck: Supple with full range of motion. No jugular venous distension. Cardiovascular: Regular rate with regular rhythm, no murmurs, rubs, or gallops appreciated Pulmonary: Clear to auscultation bilaterally with no crackles, wheezes, or rhonchi. Normal respiratory effort with no use of accessory muscles. Good air movement Abdomen: Bowel tones present. Soft, nontender. Back: Spina bifida. Spinal midline. Lower back deformities, patient attributes this to collections of spinal fluid Skin: She has an ecchymotic spot on the left hip where she initially fell,, non- tender to palpation, small hematoma is palpated. Extremities: no sensation of extremities distal to pelvis. Good Pedal pulses bilaterally. No pain to palpation Neurological: No focal deficits Psychiatric: Normal mood and affect. Alert and oriented to person, place, and time. IVs and Medications Medications Reviewed: Medications were reviewed in detail Lab and Diagnostics Result Diagram: 11/16/16 0503 11/16/16 0720 X-Rays, CTs and MRIs . X-RAY PELVIS WITH BILATERAL HIPS, 3 VIEWS IMPRESSION: Proximal femoral fracture thought to be subtrochanteric but involving the lesser trochanter. Dictated by: Uri Haji M.D. on 11/11/2016 at 20:31 X-RAY LEFT FEMUR, TWO VIEWS IMPRESSION: Proximal left femoral diaphysis fracture on the margin of images. No distal femoral fracture. Bones are osteoporotic. Dictated by: Uri Haji M.D. 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 Acute disease is not seen in the chest. Bones are osteoporotic. Moderate rotoscoliosis. Dictated by: Uri Haji M.D. on 11/11/2016 at 20:40 CT ANGIO CHEST PULMONARY EMBOLISM IMPRESSION: No evidence for pulmonary embolus. Probable large hiatal hernia. I cannot track the distal esophagus to look for the location of the esophageal gastric junction. A probable hiatal hernia rather than ruptured hemidiaphragm appears to be chronic and involves bowel loops which are nonobstructive. Dictated by: Uri Haji M.D. 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 Acute fracture of the left femur the proximal diaphysis and involving the inferior aspect of the lesser trochanter with displacement of the major distal fragment posteriorly the thickness of the shaft of the femur. No fracture of the pelvic ring. Dictated by: Uri Haji M.D. on 11/11/2016 at 21:06 PROCEDURE: US EXTREMITY SONOGRAM LIMITED ([id number]) INDICATIONS: check hematoma on left hip TECHNIQUE: Real-time scanning was performed of the left thigh, with image documentation. COMPARISON: [facility], CR, XR FEMUR 2VW RT, 11/12/2016, 17:13. FINDINGS: A hematoma is identified at the posterior left inferior aspect of the wound dressing, with a bilobed configuration one of which measures 0.8 x 4.4 cm and the second lobe measures 2.2 x 2.6 x 4.1 cm located approximately 4 cm deep to the posterolateral aspect of the upper thigh. IMPRESSION: A bilobed hematoma is present as discussed, measuring up to 2.2 x 2.6 x 4.1 cm at the posterior lateral aspect of the upper thigh, on the left, 4 cm deep to the skin surface. Dictated by: Emmanuel Bojorquez M.D. on 11/15/2016 at 18:49 Assessment & Plan Mrs. Magana is a 71-year-old female with past medical history of spina bifida , multiple PEs and DVTs admitted for a left hip fracture # Acute anemia secondary to blood loss that is inherent and inherent risk of orthopedic surgery: Hemoglobin 7.8 on 11/16 -- Patient is a [employer], no blood products are expected -- Venofer 200 mg x2 infusion is given via IV: Patient is agreeable -- Dr. Pendleton consulted and initially considered EPo but recommended against given patient's stable hemoglobin and asymptomatic and tendency to blood clots #Left hip fracture s/p left femur closed reduction intramedullary nail fixation - [employer], no blood products excepted -enoxaparin and increased to therapeutic dose, continue coumadin per pharmacy. Will monitor the ecchymotic spot as well as H&H. -Theraputic Anticoag with Warfarin (patient will be bridged back to her chronic warfarin dosing per pharmacy, SCDs, -- Continue PT OT #Stable surgical site hematoma. -Hemoglobin is stable. Hematoma size stable -US : 2.2 x 2.6 x 4.1 cm at the posterior lateral aspect of the upper thigh, on the left, 4 cm deep to the skin surface. #Subtherapeutic INR: -- Continue enoxaparin therapeutic dose and Coumadin per pharmacy #Chronic osteoporosis: -- calcitonin nasal spray and vit D home meds #Chronic neurogenic bladder: -- She still has the Torres from the OR -- Discontinue Torres 6/6 a.m. -- Straight cath on a daily basis as this is what she does at home #Right hip pain: -- X-rays ordered, negative for fracture in right femur #D-dimer, present on admission. - 1.73 in ED - CT angiogram negative - Lower extremity ultrasound showed Suspect chronic DVT involving the distal left superficial femoral and popliteal veins otherwise the common femoral and proximal/mid superficial femoral veins are patent. #Chronic constipation. Present on admission. Ongoing - MiraLAX -- Encouraged patient to take MiraLAX and senna, she is still declining... Disposition: Patient is approved to go to [facility] family is interested in going to [place]. Case management providing him with options. Possible discharge tomorrow if hemoglobin stays stable GI Prophylaxis: H2 carrillo (yuko) VTE Prophylaxis: Sub-Q Enoxaparin, Theraputic Anticoag with Warfarin (patient will be bridged back to her chronic warfarin dosing per pharmacy management with hospitalist service.), SCDs, ANNY Hose VTE Mechanical Devices: Intermittant Pneumatic CD, Anti-Embolic stockings Resuscitation Status: CPR: Attempt Resuscitation Bienvenido Salazar MD Nov 16, 2016 14:40
--- NOTE | 2016-11-16 18:42 | NUR ---
POST-OP PROGRESS Patient denies pain. Tolerating liquids PO and her diet well. Denies nausea. No emesis noted. + 2 BM's this shift. Denies SOB. Patient was able to transfer to the wheelchair for lunch and sat there for a couple of hours this afternoon. Tolerated activity well. Dressing has minimal output drainage noted. IFC is in at this time per MD orders. Patient is anticipating D/C to a SNF tomorrow.
[2016-11-16 19:26] VITALS: BP 126/81; RESP 16; O2SAT 98
[2016-11-17 04:27] VITALS: BP 104/64; PULSE 79; RESP 18; O2SAT 97
--- NOTE | 2016-11-17 04:39 | NUR ---
activity pt has rested comfortably in bed this shift. she denies any pain or need for pain medication. she refused her bowel medications at and has not had a BM this shift. she has been turned q4hrs. dressing to L hip are C/D/I with scant drainage. care continues.
[2016-11-17 05:57] LABS: INR 2.46 ratio
[2016-11-17 06:01] LABS: Mean Corpuscular Hemoglobin 28.7 pg (27.0-35.0); Platelet Count 263 bil/L (150-400)
[2016-11-17 06:41] LABS: BASOPHILS % (AUTO) 1 % (0-3); EOSINOPHILS % (AUTO) 5 % (0-5); MONOCYTES % (AUTO) 7 % (4-12)
[2016-11-17 06:42] LABS: NEUTROPHILS % (AUTO) 54 % (40-74)
[2016-11-17] MEDS: Polyethylene Glycol (PEG) 17 Gm Powder PO SCH (08:30)
[2016-11-17] MEDS: Senna-Docusate 8.6-50 mg Tablet PO SCH (08:30)
[2016-11-17 08:31] VITALS: BP 110/59; PULSE 77; RESP 18; O2SAT 97
[2016-11-17] MEDS: Calcitonin 200 IU 3.7 mL Nasal Spray NASAL SCH (08:33)
[2016-11-17] MEDS: Sodium Chloride LOK Flush 10 mL Syringe IV SCH (08:33)
--- NOTE | 2016-11-17 08:41 | NUR ---
Patient declined OT this morning. Will try again as able. Jacob Zhang, OTR/L
[2016-11-17 09:13] LABS: Vitamin B12 >1999 pg/mL (211-946)
--- NOTE | 2016-11-17 09:33 | PCM.PNORTH ---
Subjective Date of Service: Nov 17, 2016 Visit Information: Reason for Visit Left Hip Fx, Thigh Hematoma, Anticoagulated Surgery/Surgery Date Post-Op Day # 5 Date of Admission: November 11, 2016 at 21:51 Hospital Day # Subjective Patient states she has noticed a large decrease in her swelling and bruising. She states that has been her biggest concern. She says the nursing has been "on top of" changing her dressings daily and she has left them alone for fear of infection. Postop General: No Complaints, No Shortness of Breath, No Chest Pain Pain Management: PO Objective Exam Objective Alert and oriented 3 and pleasant. Anterior proximal thigh wound bandage has serous drainage on it however it appears to be minimal. Evidence of ecchymosis throughout thigh. Swelling is mild and thigh is soft. Torres catheter remains in place. Continued participation with physical therapy in the form of transfers to wheelchair or bedside chair. Vital Signs and I/O Vital Sign - Last Date Time Temp Pulse Resp B/P Pulse Ox O2 Delivery O2 Flow Rate FiO2 11/17/16 08:31 36.8 77 18 110/59 97 Room Air 11/12/16 21:21 2.50 Intake and Output 11/16/16 11/16/16 11/17/16 Cumulative From/Thru 15:00 23:00 07:00 11/11/16 16:08 - 11/17/16 05:36 Intake Total 1200 ml 400 ml 7967 ml Output Total 1200 ml 500 ml 8360 ml Balance 0 ml -100 ml -393 ml Intake Oral 1200 ml 400 ml 4840 ml IV Total 3127 ml Output Urine Total 1200 ml 500 ml 8150 ml Estimated Blood Loss 210 ml # Bowel Movements 2 0 7 Lab & Micro Results Laboratory Tests Test 11/16/16 13:00 11/17/16 04:45 White Blood Count 5.9th/mm3 (3.8-10.1) Red Blood Count 2.61mil/mm3 (3.90-5.20) Hemoglobin 7.5g/dL (12.0-15.6) Hematocrit 24.0% (35.0-46.0) Mean Corpuscular Volume 92.0fL (81-100) Mean Corpuscular Hemoglobin 28.7pg (27.0-35.0) Mean Corpuscular Hemoglobin Concent 31.3% (32.0-37.0) Red Cell Distribution Width 14.3% (12.3-15.4) Platelet Count 263bil/L (150-400) Neutrophils (%) (Auto) 54% (40-74) Lymphocytes (%) (Auto) 26% (14-46) Monocytes (%) (Auto) 7% (4-12) Eosinophils (%) (Auto) 5% (0-5) Basophils (%) (Auto) 1% (0-3) Band Neutrophils % 4% (1-5) Metamyelocytes % 1% (0-0) Myelocytes % 2% (0-0) Prothrombin Time 26.8sec (8.1-12.5) Prothromb Time International Ratio 2.46ratio Sodium Level 142mEq/L (134-144) Potassium Level 4.1mEq/L (3.5-5.2) Chloride Level 108mEq/L (97-108) Carbon Dioxide Level 23mmol/L (18-29) Blood Urea Nitrogen 10mg/dL (8-27) Creatinine 0.33mg/dL (0.57-1.00) Estimat Glomerular Filtration Rate 283mL/min (>59) Glucose Level 91mg/dL (60-99) Calcium Level 8.4mg/dL (8.5-10.1) Total Bilirubin 0.9mg/dL (0.0-1.2) Aspartate Amino Transf (AST/SGOT) 42U/L (0-50) Alanine Aminotransferase (ALT/SGPT) 25U/L (0-32) Alkaline Phosphatase 65U/L (25-165) Total Protein 4.5g/dL (6.4-8.4) Albumin 2.5g/dL (3.4-5.0) Result Diagram: 11/17/1644411/17/16444 Activity: Activity per PT, Ambulate with PT (weightbearing as tolerated on the left lower extremity for transfers. Physical therapy please work on bed mobility, positioning and transferring with patient's primary in-home wheelchair ) Catheters: Urethral 2 Way Torres (Torres in place on postop day #1. Discontinue Torres on postoperative day #1 after first PT session.) Assessment & Plan Impression Postop day #5 from left hip long IM nail placement on 11/12/[address] Jere Wells. Problems: Plan Weightbearing as tolerated on the left lower extremity for transfers only. Continue formal physical therapy for bed mobility, transfers and safety. Continue by mouth pain medications as needed. DVT prophylaxis managed by hospitalist service. Dressings should be changed daily. Follow-up in 2 weeks at [facility] orthopedic clinic with Dr. Jere Wells for staple removal, Steri-Strip placement and wound check with left two- view femur x-rays on arrival. Follow-up in 6 weeks at [facility] orthopedic clinic with Dr. Jere Wells with left two-view femur x-rays on arrival. Orthopedic [facility] service for their help in the medical management of this patient. From orthopedic standpoint patient is mechanically stable for discharge to longterm facility by hospitalist service when patient is determined to be medically stable to do so. Anticipate discharge to longterm facility by hospitalist service when patient is medically stable to do so. VTE Prophylaxis: Sub-Q Enoxaparin, Theraputic Anticoag with Warfarin (patient will be bridged back to her chronic warfarin dosing per pharmacy management with hospitalist service.), SCDs, ANNY Goss Resuscitation Status: CPR: Attempt Resuscitation Laurel Roldan PA-C Nov 17, 2016 09:33
--- NOTE | 2016-11-17 10:42 | PCM.DIMED ---
Discharge Instructions Date of Service Nov 17, 2016 Dates of Hospitalization November 11, 2016 at 21:51 Discharge Diagnosis Discharge Diagnosis # Acute anemia secondary to blood loss #Left hip fracture s/p left femur closed reduction intramedullary nail fixation #Stable surgical site hematoma. #Subtherapeutic INR: #Chronic osteoporosis: #Chronic neurogenic bladder: #Right hip pain: #Chronic constipation. Diet Discharge Diet: Low fat, Low Sodium, Other (warfarin diet restrictions) Activity Discharge Activity: Other (continue physical therapy at intermediate facility.) Call your provider Call your provider for: Fever or Chills, Shortness of breath, Bleeding, Chest pain, Vomitting, Excessive diarrhea, Weakness (unilateral) Patient Instructions Patient Instructions You were hospitalized due to left hip fracture. You underwent intramedullary nailing.You had small stable surgical site hematoma and postoperative anemia. IV Iron x2 was given. Hemoglobin stable at 7.5 on day of discharge. Transfusion avoided due to hindu reasons/Jehovah witness. Please continue physical therapy at intermediate facility. Please continue warfarin as usual. Orthopedics instructions Weightbearing as tolerated on the left lower extremity for transfers only. Continue formal physical therapy for bed mobility, transfers and safety. Continue by mouth pain medications as needed. DVT prophylaxis warfarin Dressings should be changed daily. Follow-up in [address] [facility] ([place] [place] orthopedic clinic with Dr. Jere Wells for staple removal, Steri-Strip placement and wound check with left two- view femur x-rays on arrival. Follow-up in [address] [facility] ([place], [place]) orthopedic clinic with Dr. Jere Wells with left two-view femur x-rays on arrival. Follow-up Provider: Felisa Waterman PA-C Follow-up with PCP in: 1 week (1 week after discharge from intermediate facility) Provider: Jere Wells MD Follow-up in: 2 weeks ([facility] ) Bienvenido Salazar MD Nov 17, 2016 10:42
[2016-11-17] MEDS ORDERED: HYDR-4003 PO (10:43)
--- NOTE | 2016-11-17 11:18 | NUR ---
Social Work: Readiness for Discharge D: EMR reviewed. Pt is on day 6 of hospitalization. Pt is medically stable for discharge, discharge orders are active. [facility] called [facility], they are agreeable to pt's discharge today. [facility] created packet and faxed orders. T/C to Rajani Bailey, pt's daughter, regarding discharge and transportation. Rajani is agreeable to discharge and private pay transportation cost. Rajani received quote from [facility] transport for $145, she is agreeable to this. Rajani reports that pt's is at doctors appointments all day today and will be unreachable. Rajani will be the primary contact for discharge. T/C to [facility] to schedule pt's transport. [facility] is able to transport pt at 1500, pt has her own wheelchair for transport. Rajani will contact [facility] to complete payment prior to transport, contact information provided. SW met with pt at bedside regarding discharge and transport, pt agreeable to plan. Pt to discharge to [facility] via private pay wheelchair van at 1500. RN, UC, pt/family, [facility] all updated and agreeable to plan. SW will continue to follow. A: Pt for whom a SNF has been deemed medically necessary. P: Pt to discharge to [facility] via private pay wheelchair van at 1500. RN, UC, pt/family, and [facility] all updated and agreeable to plan. SW will continue to follow. VINITA Olvera
--- NOTE | 2016-11-17 11:21 | NUR ---
Spoke with Lashanda at [facility], she has a bed for patient today and is aware patient will be leaving hospital at 1500. Faxed orders and Pasrr, placed copy in chart. [facility] will do private pay transport at 1500. Updated NURSE SUPERVISOR
--- NOTE | 2016-11-17 11:43 | PCM.DC.MED ---
Discharge Summary Date of Service Nov 17, 2016 Dates of Hospitalization Date of Hospital Admission November 11, 2016 at 21:51 Date of Discharge: Nov 17, 2016 Providers: Admitting Physician: Elie Mello MD Primary Care Physician: Felisa Waterman PA-C Attending Physician: Elie Mello MD Diagnosis at Time of Discharge Diagnosis at Time of Discharge # Acute anemia secondary to blood loss #Left hip fracture s/p left femur closed reduction intramedullary nail fixation #Stable surgical site hematoma. #Subtherapeutic INR: #Chronic osteoporosis: #Chronic neurogenic bladder: #Right hip pain: #Chronic constipation. Consultations hematology Dr Pendleton Procedures XRay, CTs & MRIs . X-RAY PELVIS WITH BILATERAL HIPS, 3 VIEWS IMPRESSION: Proximal femoral fracture thought to be subtrochanteric but involving the lesser trochanter. Dictated by: Uri Haji M.D. on 11/11/2016 at 20:31 X-RAY LEFT FEMUR, TWO VIEWS IMPRESSION: Proximal left femoral diaphysis fracture on the margin of images. No distal femoral fracture. Bones are osteoporotic. Dictated by: Uri Haji M.D. 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 Acute disease is not seen in the chest. Bones are osteoporotic. Moderate rotoscoliosis. Dictated by: Uri Haji M.D. on 11/11/2016 at 20:40 CT ANGIO CHEST PULMONARY EMBOLISM IMPRESSION: No evidence for pulmonary embolus. Probable large hiatal hernia. I cannot track the distal esophagus to look for the location of the esophageal gastric junction. A probable hiatal hernia rather than ruptured hemidiaphragm appears to be chronic and involves bowel loops which are nonobstructive. Dictated by: Uri Haji M.D. 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 Acute fracture of the left femur the proximal diaphysis and involving the inferior aspect of the lesser trochanter with displacement of the major distal fragment posteriorly the thickness of the shaft of the femur. No fracture of the pelvic ring. Dictated by: Uri Haji M.D. on 11/11/2016 at 21:06 PROCEDURE: US EXTREMITY SONOGRAM LIMITED ([id number]) INDICATIONS: check hematoma on left hip TECHNIQUE: Real-time scanning was performed of the left thigh, with image documentation. COMPARISON: [facility], CR, XR FEMUR 2VW RT, 11/12/2016, 17:13. FINDINGS: A hematoma is identified at the posterior left inferior aspect of the wound dressing, with a bilobed configuration one of which measures 0.8 x 4.4 cm and the second lobe measures 2.2 x 2.6 x 4.1 cm located approximately 4 cm deep to the posterolateral aspect of the upper thigh. IMPRESSION: A bilobed hematoma is present as discussed, measuring up to 2.2 x 2.6 x 4.1 cm at the posterior lateral aspect of the upper thigh, on the left, 4 cm deep to the skin surface. Dictated by: Emmanuel Bojorquez M.D. on 11/15/2016 at 18:49 Invasive Procedures Date of Service: Nov 12, 2016 Pre Operative Diagnosis left subtrochanteric femoral shaft fracture Post Operative Diagnosis left subtrochanteric femoral shaft fracture Procedure left femur closed reduction intramedullary nail fixation Surgeon Surgeon: Jere Wells Assistants: Janusz Juarez Indication for Procedure left femur fracture Findings per dictation Details of Procedure Implant: Josie/Biomet 11X36 versa nail, 6.5X60, 80; 4.5X56mm distally Indications: This is Janet Magana is a 71-year-old female with left subtrochanteric femur fracture with extension. The risks versus benefits of open reduction and internal fixation were discussed with the patient in detail. The patient voiced understanding of the risks and agreed to proceed. The risks discussed were pain, bleeding, infection, damage to neurovascular structures, failure of procedure, need for further procedures, loss of limb function, loss of limb, heart attack, stroke, and . Verbal and written consent were obtained. Brief History per HPI Mrs. 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 The patient reportedly had a ground-level fall on 2016 she was transferring herself from the commode which she routinely does. On falling she states she hit her left upper thigh and twisted her leg externally, denies hitting her head or losing consciousness, or any feelings of pain after fall (though she does not have sensation in her lower extremities). After fall she noticed a large hematoma develop on her left thigh and left hip as well as increase in her left leg circumference stating it is twice the size it normally is. Again she does not report any pain to this area stating it feels more like a pressure sensation to her upper thigh and hip groin area. She also states that since the fall she has been experiencing some mild shortness of breath. She denies chest pain, headache, abdominal pain or changes in GI or habits. She does state that she has has been getting dizzy over the last few days to weeks especially while transferring from commode to wheelchair, also she has been feverish at home but was not temperature. Of note patient is a [employer]ism and does not wish to receive blood products/platelet transfusion Hospital Course Mrs. Magana is a 71-year-old female with past medical history of spina bifida , multiple PEs and DVTs admitted for a left hip fracture # Acute anemia secondary to blood loss that is inherent and inherent risk of orthopedic surgery: Hemoglobin 7.8 on 11/16 -- Patient is a [employer], no blood products are expected -- Venofer 200 mg x2 infusion is given via IV: Patient is agreeable -- Dr. Pendleton consulted and initially considered EPo but recommended against given patient's stable hemoglobin and asymptomatic and also tendency to blood clots #Left hip fracture s/p left femur closed reduction intramedullary nail fixation -INR therapeutic continue coumadin home dose -- Continue PT at SNF #Stable surgical site hematoma. -Hemoglobin is stable. Hematoma size stable -US : 2.2 x 2.6 x 4.1 cm at the posterior lateral aspect of the upper thigh, on the left, 4 cm deep to the skin surface. #Chronic osteoporosis: -- calcitonin nasal spray and vit D home meds #Chronic neurogenic bladder: -- Straight cath on a daily basis as this is what she does at home #Right hip pain: -- X-rays ordered, negative for fracture in right femur #D-dimer, present on admission. - 1.73 in ED - CT angiogram negative - Lower extremity ultrasound showed Suspect chronic DVT involving the distal left superficial femoral and popliteal veins otherwise the common femoral and proximal/mid superficial femoral veins are patent. #Chronic constipation. Present on admission. Ongoing - MiraLAX -- Encouraged patient to take MiraLAX and senna, she is still declining... Disposition: discharge to [facility] condition on discharge stable Exam Vital Signs (Last) Date Time Temp Pulse Resp B/P Pulse Ox O2 Delivery O2 Flow Rate FiO2 11/17/16 08:37 Supplement Oxygen 11/17/16 08:31 36.8 77 18 110/59 97 11/12/16 21:21 2.50 Exam General: Awake and alert, HEENT: Normocephalic, atraumatic. External ears without defect. Neck: Supple with full range of motion. No jugular venous distension. Cardiovascular: Regular rate with regular rhythm, no murmurs, rubs, or gallops appreciated Pulmonary: Clear to auscultation bilaterally with no crackles, wheezes, or rhonchi. Normal respiratory effort with no use of accessory muscles. Good air movement Abdomen: Bowel tones present. Soft, nontender. Back: Spina bifida. Spinal midline. Lower back deformities, patient attributes this to collections of spinal fluid Skin: She has an ecchymotic spot on the left hip where she initially fell,, non- tender to palpation, small hematoma is palpated. Extremities: no sensation of extremities distal to pelvis. Good Pedal pulses bilaterally. No pain to palpation,left hip small hematoma Neurological: No focal deficits Psychiatric: Normal mood and affect. Alert and oriented to person, place, and time. Test 11/11/16 16:30 11/11/16 16:31 11/12/16 05:10 11/16/16 04:40 D-Dimer 1.73mg/L FEU (<0.50) Hold Purple Top Tube Received (Received) Hold Red Top Tube Received (Received) Hold Vanderbilt Top Tube Received (Received) Hold Riley Top Tube Received (Received) Magnesium Level 1.9mg/dL (1.6-2.6) Reticulocyte Count,Calculated 4.5% (0.6-2.6) Test 11/16/16 07:20 11/16/16 07:30 11/17/16 04:45 Total Iron Binding Capacity 222ug/dL (250-450) Percent Iron Saturation 73%sat (15-50) Unsaturated Iron Binding 58.6ug/dL Ferritin 216ng/mL (13-150) Vitamin B12 Level >1999pg/mL (211-946) White Blood Count 5.9th/mm3 (3.8-10.1) Red Blood Count 2.61mil/mm3 (3.90-5.20) Hemoglobin 7.5g/dL (12.0-15.6) Hematocrit 24.0% (35.0-46.0) Mean Corpuscular Volume 92.0fL (81-100) Mean Corpuscular Hemoglobin 28.7pg (27.0-35.0) Mean Corpuscular Hemoglobin Concent 31.3% (32.0-37.0) Red Cell Distribution Width 14.3% (12.3-15.4) Platelet Count 263bil/L (150-400) Neutrophils (%) (Auto) 54% (40-74) Lymphocytes (%) (Auto) 26% (14-46) Monocytes (%) (Auto) 7% (4-12) Eosinophils (%) (Auto) 5% (0-5) Basophils (%) (Auto) 1% (0-3) Band Neutrophils % 4% (1-5) Metamyelocytes % 1% (0-0) Myelocytes % 2% (0-0) Prothrombin Time 26.8sec (8.1-12.5) Prothromb Time International Ratio 2.46ratio Sodium Level 142mEq/L (134-144) Potassium Level 4.1mEq/L (3.5-5.2) Chloride Level 108mEq/L (97-108) Carbon Dioxide Level 23mmol/L (18-29) Blood Urea Nitrogen 10mg/dL (8-27) Creatinine 0.33mg/dL (0.57-1.00) Estimat Glomerular Filtration Rate 283mL/min (>59) Glucose Level 91mg/dL (60-99) Calcium Level 8.4mg/dL (8.5-10.1) Total Bilirubin 0.9mg/dL (0.0-1.2) Aspartate Amino Transf (AST/SGOT) 42U/L (0-50) Alanine Aminotransferase (ALT/SGPT) 25U/L (0-32) Alkaline Phosphatase 65U/L (25-165) Total Protein 4.5g/dL (6.4-8.4) Albumin 2.5g/dL (3.4-5.0) Discharge Medications Discharge Medications Calcitonin [place] (Miacalcin) 30 Ruffin/3.7 Ml Nasalspr 1 SPRAY NA DAILY ( Reported) Ruffin in 1 Nostril (Alternating Nostrils) Daily Cholecalciferol (Vitamin D3) (Vitamin D3) 1,000 Unit Tab.chew 1,000 UNIT PO BID (Reported) Warfarin Sodium (Warfarin Sodium) 3 Mg Tablet 3 MG PO DAILY (Reported) As needed Hydrocodone-Acetaminophen 5-325 mg (Hydrocodone-Acetaminophen 5-325 mg) 1 Each Tablet 1-2 TABLET PO Q4H PRN PRN For Moderate Pain Prescribed by: BIENVENIDO MERLOS MD Polyethylene Glycol 3350 (Miralax) 17 Gm Powd.pack 17 GM PO DAILY PRN PRN For Constipation (Reported) Followup Plan Disposition: SNF Discharge Diet: Low fat, Low Sodium, Other (warfarin diet restrictions) Discharge Activity: Other (continue physical [facility] at [facility].) Patient Instructions You were hospitalized due to left hip fracture. You underwent intramedullary nailing.You had small stable surgical site hematoma and postoperative anemia. IV Iron x2 was given. Hemoglobin stable at 7.5 on day of discharge. Transfusion avoided due to jain reasons/Jehovah witness. Please continue physical therapy at [facility]. Please continue warfarin as usual. Orthopedics instructions Weightbearing as tolerated on the left lower extremity for transfers only. Continue formal physical therapy for bed mobility, transfers and safety. Continue by mouth pain medications as needed. DVT prophylaxis warfarin Dressings should be changed daily. Follow-up in 2 weeks at [facility] orthopedic clinic with Dr. Jere Wells for staple removal, Steri-Strip placement and wound check with left two- view femur x-rays on arrival. Follow-up in 6 weeks at [facility] orthopedic clinic with Dr. Jere Wells with left two-view femur x-rays on arrival. Follow-up Provider: Felisa Waterman PA-C Follow-up with PCP in: 1 week (1 week after discharge from [facility]) Provider: Jere Wells MD Follow-up in: 2 weeks ([facility] ) Time spent 35 minutes copies to: Felisa Waterman PA-C; Sheu,Bienvenido Mc MD, MD Nov 17, 2016 11:43
--- NOTE | 2016-11-17 12:39 | NUR ---
Discharge Note Pt has denied any pain, nausea or SOB. VSS, tolerating diet well. Pt anticipating discharge at 1500 today. Report given to Marisol at [facility]. Pt ready to discharge with all belongings. Cont to monitor.
--- NOTE | 2016-11-17 15:45 | NUR ---
Social Work: Discharge D: EMR reviewed. Pt is on day 6 of hospitalization. Pt is medically stable for discharge, discharge orders are active. [facility] today, pt and family all agreeable to private pay transport cost. [facility] to transport pt at 1500. Pt to discharge to [facility] via private pay wheelchair van at 1500. RN, UC, pt/family, and [facility] all updated and agreeable to plan. A: Pt for whom a SNF has been deemed medically necessary. P: Pt discharged to [facility] via private pay wheelchair van at 1500. RN, UC, pt/family, and [facility] all updated and agreeable to plan. No additional discharge needs identified. VINITA Olvera
[2016-11-18 13:13] LABS: Transferrin 168 mg/dL (.)
== END 2016-11-17 15:36 | DRG 481 ==
LOC: SED 15:47 → OSC 21:51
PROVIDERS: ADMIT Hospitalist; ATTEND Hospitalist
PROC: 0QS736Z Reposition Left Upper Femur with Intramedullary Internal Fixation Device, Percutaneous Approach (ICD-10-PCS; principal; 2016-11-12 13:00)
DX: S72.22XA Displaced subtrochanteric fracture of left femur, initial encounter for closed fracture (principal); G82.20 Paraplegia, unspecified; D62 Acute posthemorrhagic anemia; L76.32 Postprocedural hematoma of skin and subcutaneous tissue following other procedure; Q05.9 Spina bifida, unspecified; Z99.3 Dependence on wheelchair; Z86.718 Personal history of other venous thrombosis and embolism; Z86.711 Personal history of pulmonary embolism; Z79.01 Long term (current) use of anticoagulants; K59.09 Other constipation; D64.9 Anemia, unspecified; M25.551 Pain in right hip; M81.0 Age-related osteoporosis without current pathological fracture; N31.8 Other neuromuscular dysfunction of bladder; R79.1 Abnormal coagulation profile; W18.30XA Fall on same level, unspecified, initial encounter